=== PATIENT | female | born 1955 | race Caucasian/White ===

== ENCOUNTER 2017-03-19 13:16 | Emergency (ER) | payer BC, OTHER ==
--- NOTE | 2017-03-19 13:31 | EDM.PDOC ---
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 Generalized myalgia loss of appetite headache worsened by coughing. She has been on a Z-Radhames for 2 days with no improvement. Phenergan With Codeine cough syrup helps control the cough somewhat. She remains quite nauseated and coughing chills she has emesis at times and therefore has taken very little food or fluids the last several days. Feeling extremely weak has been using a combination of Tylenol Motrin. Coughing is aggravating mid back pain that shoots into the Botox bilaterally down the posterior thighs. This suggests she has a disc disease process. Onset: Sudden Onset Date: 03/16/17 Duration: Day(s): Location: Reports: Chest, Generalized (Severe paroxysmal cough headache with generalized myalgia), Other (Decreased appetite with very poor oral ) Quality: Reports: Ache (intake of food or fluids.) Severity: Moderate Improves with: Reports: None Worsens with: Reports: Other (Coughing.) Context: Reports: Sick Contact. Denies: Activity, Exercise, Lifting, Trauma, Other Associated Symptoms: Reports: Chest Pain, Cough, cough w sputum (From coughing) , Diaphoresis ( caseand production no blood), Fever/Chills, Headaches, Loss of Appetite, Malaise, Nausea/Vomiting, Shortness of Breath, Weakness (Usually posttussive vomiting. Her generalized weakness.). 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, NSAIDS (Motrin) Back Pain Score (Numeric/FACES): 6 - Related Data Allergies Allergy/AdvReac Type Severity Reaction Status Date / Time prochlorperazine edisylate Allergy Vomiting Verified 08/06/14 17:04 [From Compazine] prochlorperazine maleate Allergy Vomiting Verified 08/06/14 17:04 [From Compazine] shellfish derived Allergy Airway Verified 08/06/14 17:04 Tightness Home Meds: Home Meds Aspirin [Low Dose Aspirin EC] 81 mg PO DAILY 08/04/14 [History] Calcium Citrate/Vitamin D3 [Calcium Citrate + D] 1 tab PO DAILY 08/04/14 [ History] Fish Oil/Sturgeon-3 Fatty Acids [Fish Oil] 1,200 mg PO DAILY 08/04/14 [History] Flaxseed Oil [Flax Oil] 1,000 mg PO DAILY 08/04/14 [History] HCTZ/Triamterene [Dyazide 25-37.5 MG] 25 - 37.5 mg PO DAILY 08/04/14 [History] Multivitamin [Multi-Vitamin Daily] 1 tab PO DAILY 08/04/14 [History] Omeprazole [Prilosec] 20 mg PO DAILY 08/04/14 [History] Thyroid,Pork [Marina Thyroid] 90 mg PO DAILY 08/04/14 [History] Albuterol Sulfate [Albuterol Sulfate HFA] 2 puff INH Q4H 08/06/14 [History] Fluticasone Propionate [Flovent HFA 110 MCG] 1 puff INH BID 08/06/14 [History] Levofloxacin 500 mg PO DAILY 08/06/14 [History] Vitamin E 1,000 mg PO DAILY 08/06/14 [History] Benzonatate [Tessalon Perles] 100 mg PO TID PRN #15 cap 08/09/14 [Rx] Fluconazole [Diflucan] 150 mg PO Q72H #2 tablet 08/09/14 [Rx] guaiFENesin [Mucinex] 600 mg PO BID #20 tab.er 08/09/14 [Rx] Chlorpheniramine/HYDROcodone [Tussionex Pennkinetic] 5 ml PO Q12H #60 ml [Rx] Oseltamivir [Tamiflu] 75 mg PO BID #9 cap 03/19/17 [Rx] Past Medical History Other Respiratory History: pneumonia 08/03/2014 Other Genitourinary History: falopian Other OB/BYN History: R) ovary removed - Past Surgical History Other Female Surgeries/Procedures: falopian tube and ovary removal Other Oncologic Surgeries/Procedures: R) ovary removed Social & Family History - Tobacco Use Smoking Status *Q: Never Smoker Second Hand Smoke Exposure: No - Recreational Drug Use Recreational Drug Use: No - Living Situation & Occupation Living situation: Reports: Occupation: Employed ED ROS GENERAL - Review of Systems Review Of Systems: See Below Constitutional: Reports: Fever, Chills, Malaise, Weakness, Fatigue, Decreased Appetite, Weight Loss HEENT: Reports: Other. Denies: Eye Discharge Respiratory: Reports: Shortness of Breath (Eye pain with looking laterally.), Cough, Sputum. Denies: Wheezing, Pleuritic Chest Pain Cardiovascular: Reports: Chest Pain, Dyspnea on Exertion, Lightheadedness. Denies: Blood Pressure Problem (Coughing so much), Claudication, Edema, Orthopnea, Palpitations Endocrine: Reports: Fatigue GI/Abdominal: Reports: Abdominal Pain (From vomiting.), Nausea, Vomiting (Most emesis is been posttussive.) : Reports: No Symptoms Musculoskeletal: Reports: Back Pain (Severe back pain mid back rating down the back into both but talks and posterior thighs with coughing suggesting disc disease.) Skin: Reports: No Symptoms Neurological: Reports: Dizziness, Difficulty Walking Psychiatric: Reports: No Symptoms (Due to weakness in her legs.) Hematologic/Lymphatic: Reports: No Symptoms Immunologic: Reports: No Symptoms ED EXAM, GENERAL - Physical Exam Exam: See Below Exam Limited By: Other General Appearance: Alert, Moderate Distress (Appears quite ill. She is mildly warm to palpation.) Eye Exam: Bilateral Eye: Normal Inspection (No jaundice.) Ears: Normal TMs Throat/Mouth: Normal Inspection, Normal Lips, Normal Teeth, Normal Oropharynx, Other (Tonsils are absent.) Head: Atraumatic, Normocephalic Neck: Normal Inspection, Supple, Non-Tender, Full Range of Motion. No: Lymphadenopathy (L), Lymphadenopathy (R) Respiratory/Chest: No Accessory Muscle Use, Respiratory Distress (Moderate tachypnea at rest 30/m.), Other (Has upper respiratory mild stridor.) Cardiovascular: Normal Peripheral Pulses, Regular Rate, Rhythm, No Edema, No Gallop, No Murmur Peripheral Pulses: 2+: Posterior Tibial (L), Posterior Tibial (R), Dorsalis Pedis (L), Dorsalis Pedis (R) GI/Abdominal: Normal Bowel Sounds, Soft, Non-Tender, No Organomegaly Back Exam: Normal Inspection, Full Range of Motion, CVA Tenderness (L), CVA Tenderness (R) Extremities: Normal Inspection, Normal Range of Motion (Mildly tender throughout her back muscles.), Non-Tender, No Pedal Edema Neurological: Alert, Oriented, CN II-XII Intact, Normal Cognition, Normal Gait Psychiatric: Normal Affect, Normal Mood Skin Exam: Warm, Dry, Intact, Normal Color, No Rash Course - Vital Signs Last Recorded V/S: Last Vital Signs Temp 36.6 C 03/19/17 15:10 Pulse 84 03/19/17 13:27 Resp 19 03/19/17 14:44 BP 115/68 03/19/17 14:44 Pulse Ox 97 03/19/17 14:44 - Orders/Labs/Meds Orders: Active Orders 24 hr Category Date Time Status Dextrose 5%-0.9% NaCl [Dextrose 5%-Normal Saline] 1,000 Med 03/19/17 13:45 Active ml IV ASDIRECTED Ketorolac [Toradol] Med 03/19/17 13:45 Active 30 mg IVPUSH ONETIME Medication Orders Dextrose/Sodium Chloride (Dextrose 5%-Normal Saline) 1,000 mls @ 999 mls/hr IV ASDIRECTED BRET Last Admin: 03/19/17 14:16 Dose: 999 mls/hr Ketorolac Tromethamine (Toradol) 30 mg IVPUSH ONETIME BRET Last Admin: 03/19/17 14:17 Dose: 30 mg Labs: Laboratory Tests 03/19/17 03/19/17 Range/Units 14:01 14:01 WBC 4.75 (3.98-10.04) K/mm3 RBC 4.96 (3.98-5.22) M/mm3 Hgb 14.3 (11.2-15.7) gm/L Hct 43.8 (34.1-44.9) % MCV 88.3 (79.4-94.8) fl MCH 28.8 (25.6-32.2) pg MCHC 32.6 (32.2-35.5) g/dl RDW Std Deviation 45.3 (36.4-46.3) fL Plt Count 200 (182-369) K/mm3 MPV 10.4 (9.4-12.3) fl Neutrophils % (Manual) 52 (40-60) % Band Neutrophils % 2 (0-10) % Lymphocytes % (Manual) 41 H (20-40) % Atypical Lymphs % 0 % Monocytes % (Manual) 3 (2-10) % Eosinophils % (Manual) 2 (0.7-5.8) % Basophils % (Manual) 0 L (0.1-1.2) Platelet Estimate Adequate RBC Morph Comment Normal Sodium 141 (136-145) mEq/L Potassium 3.9 (3.5-5.1) mEq/L Chloride 103 (98-107) mEq/L Carbon Dioxide 30 (21-32) mEq/L Anion Gap 11.9 (5-15) BUN 17 (7-18) mg/dL Creatinine 0.9 (0.55-1.02) mg/dL Est Cr Clr Drug Dosing 55.25 mL/min Estimated GFR (MDRD) > 60 (>60) mL/min BUN/Creatinine Ratio 18.9 H (14-18) Glucose 100 (80-115) mg/dL Calcium 9.5 (8.5-10.1) mg/dL Total Bilirubin 0.4 (0.2-1.0) mg/dL AST 44 H (15-37) U/L ALT 70 H (14-59) U/L Alkaline Phosphatase 99 (46-116) U/L C-Reactive Protein 1.0 (<1.0) mg/dL Total Protein 7.4 (6.4-8.2) g/dl Albumin 3.5 (3.4-5.0) g/dl Globulin 3.9 gm/dL Albumin/Globulin Ratio 0.9 L (1-2) Meds: Medications Generic Name Dose Route Start Last Admin Trade Name Freq PRN Reason Stop Dose Admin Dextrose/Sodium Chloride 1,000 mls @ 999 mls/hr 03/19/17 13:45 03/19/17 14:16 Dextrose 5%-Normal Saline IV 999 mls/hr ASDIRECTED BRET Administration Ketorolac Tromethamine 30 mg 03/19/17 13:45 03/19/17 14:17 Toradol IVPUSH 30 mg ONETIME BRET Administration Discontinued Medications Generic Name Dose Route Start Last Admin Trade Name Freq PRN Reason Stop Dose Admin Acetaminophen 325 mg 03/19/17 15:07 03/19/17 15:10 Tylenol PO 03/19/17 15:08 325 mg NOW ONE Administration Ondansetron HCl 4 mg 03/19/17 14:36 03/19/17 14:43 Zofran IVPUSH 03/19/17 14:37 4 mg ONETIME ONE Administration Oseltamivir Phosphate 75 mg 03/19/17 14:40 03/19/17 14:47 Tamiflu PO 03/19/17 14:41 75 mg ONETIME ONE Administration - Radiology Interpretation Free Text/Narrative:: 61-year-old female attends the ED with a four-day history of fever chills and generalized myalgia headache and severe paroxysmal cough. She is on a Z-Radhames which has not seemed to help. She is also using Phenergan with codeine cough syrup which does help somewhat. She remains quite nauseated and has not really been able to keep much down in terms of fluids or solids. Clinically she is exhibiting signs and symptoms of influenza virus. 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 Cough is sometimes productive. Therefore chest x-ray will be done to rule out pneumonia. Influenza screen will be done. Routine labs will also be done. I will look up to IV for D5 normal saline at open. - Re-Assessments/Exams Free Text/Narrative Re-Assessment/Exam: 03/19/17 14:39 two-view chest x-ray is negative for pneumonia. There are some degenerative changes with anterior spurring of the mid thoracic vertebra. Cardiac silhouette is otherwise normal. Influenza screen is positive for type a virus. Patient remains quite nauseated I will therefore give her Zofran 4 mg IV. After this she will then be given initial dose of Tamiflu 75 mg. 03/19/17 15:25 White count is 4.75 with 52% neutrophils 2% bands and 41% lymphocytes. Hemoglobin is 14.3 with hematocrit of 43.8. Platelet count is 200, 000. Sodium is 141 with a potassium of 3.9. Chloride 103 with a bicarbonate of 30. Anion gap is 11.9 with a BUN of 17. Creatinine is 0.9. Glucose is 100. Bilirubin is normal at 0.4. AST is 44 mildly elevated ALT is mildly elevated at 70. Alk phosphatase normal at 99. C-reactive protein is 1.0. Patient be discharged home on Tamiflu 75 mg twice a day for the next 5 days. Tussionex cough syrup 5 mils every 12 hours. For cough relief. Continue with Motrin and Tylenol or draining fashion for fever relief. 03/19/17 16:12 I did write a prescription for Tamiflu for her -- Herbert , to take 75 mg once daily for 10 days to prevent him from getting influenza. Departure - Departure Time of Disposition: 15:26 Disposition: Home, Self-Care 01 Condition: Fair Clinical Impression: Influenza A - Discharge Information Prescriptions: Chlorpheniramine/HYDROcodone [Tussionex Pennkinetic] 5 ml PO Q12H #60 ml Oseltamivir [Tamiflu] 75 mg PO BID #9 cap Instructions: Influenza, Adult, [id number] Referrals: Edmundo Zendejas MD [Primary Care Provider] - Forms: ED Department Discharge Additional Instructions: Evaluation in the emergency him today in regards to four-day history of fever chills paroxysmal cough headache and loss of appetite compatible with influenza. Testing proved positive for influenza type a virus. Showed a normal white count at 4.75 with normal differential. He did not reveal any significant evidence of dehydration. You're treated with a liter of IV fluids in the ED as well as Zofran 4 mg IV to relieve nausea. Initial dose of Tamiflu 75 mg was given in the ED as well Treatment at home is second Tamiflu dose tonight at bedtime. Tamiflu was then to be taken twice daily for another 4 days. Usually you start to feel improved after the third tablet has been taken. Continue Tylenol alternating with Motrin as needed for fever headache and body ache relief. Cough syrup is to be Tussionex cough syrup 5 mils every 12 hours as needed for cough relief. You may find 5 mils too strong and I would suggest starting with 2.5 mils twice daily since you are very sensitive to medications. Usually takes about an hour to work. Plan at least a good hour before bedtime. I did fluids such as Gatorade Powerade and diet as tolerated. You're considered contagious to others for approximately 1 week from the time you developed symptoms. - My Orders Last 24 Hours: My Active Orders 03/19/17 13:45 Dextrose 5%-0.9% NaCl [Dextrose 5%-Normal Saline] 1,000 ml IV ASDIRECTED Ketorolac [Toradol] 30 mg IVPUSH ONETIME - Assessment/Plan Last 24 Hours: My Active Orders 03/19/17 13:45 Dextrose 5%-0.9% NaCl [Dextrose 5%-Normal Saline] 1,000 ml IV ASDIRECTED Ketorolac [Toradol] 30 mg IVPUSH ONETIME
[2017-03-19] MEDS ORDERED: Ketorolac 30 MG/ML SDV IVPUSH SCH (13:45)
[2017-03-19] MEDS ORDERED: Dextrose 5%-0.9% NaCl 1,000 ML IV SCH (13:45)
[2017-03-19] MEDS ORDERED: Ondansetron 4 MG/2 ML SDV IVPUSH ONE (14:36)
[2017-03-19] MEDS ORDERED: Oseltamivir 75 MG Cap PO ONE (14:40)
--- NOTE | 2017-03-19 14:44 | CR ---
Chest: Two views of the chest were obtained. Comparison: Prior chest x-ray of 08/06/14. Heart size at the upper limits of normal. Mild tortuosity of the thoracic aorta is seen. Lungs are clear. Bony structures show mild degenerative change scattered within the spine. Impression: 1. Incidental findings. Nothing acute is appreciated. Diagnostic code #2
[2017-03-19 14:50] VITALS: BP 115/68
[2017-03-19] MEDS ORDERED: Ibuprofen 600 MG Tab PO ONE (14:58)
[2017-03-19] MEDS ORDERED: Acetaminophen 325 MG Tab PO ONE ×2 (14:59→15:07)
== END 2017-03-19 15:43 | disposition home or self-care (01) ==
LOC: JD.ED 13:16
DX: J10.1 Influenza due to other identified influenza virus with other respiratory manifestations (principal); Z79.82 Long term (current) use of aspirin; Z79.2 Long term (current) use of antibiotics; Z79.899 Other long term (current) drug therapy; Z88.8 Allergy status to other drugs, medicaments and biological substances; Z91.013 Allergy to seafood
CPT/HCPCS: 36415; 71046; 80053; 85025; 86140; 87804; 96361; 96374; 96375; 99284; A9270; J1885; J2405; J7042

== ENCOUNTER 2018-02-05 09:54 | Emergency (ER) | payer BC, OTHER ==
[2018-02-05 10:04] VITALS: BP 135/91
--- NOTE | 2018-02-05 10:45 | CR ---
Chest: Two views of the chest were obtained. Comparison: Prior chest x-ray of 03/19/17. Heart size is normal. Tortuous thoracic aorta is seen. Lung markings are slightly increased centrally which appear to be chronic. No acute parenchymal change is seen. Bony structures show mild scattered degenerative change within the spine with slight scoliosis. Impression: 1. Incidental findings which are stable. Nothing acute is appreciated. Diagnostic code #2
--- NOTE | 2018-02-05 10:58 | EDM.PDOC ---
ED HPI GENERAL MEDICAL PROBLEM - General Chief Complaint: Respiratory Problem Stated Complaint: POSSIBLE PNEUMONIA Time Seen by Provider: 02/05/18 10:05 Source of Information: Reports: Patient, RN Notes Reviewed - History of Present Illness INITIAL COMMENTS - FREE TEXT/NARRATIVE: 62-year-old lady became ill several days ago with cough nasal sinus congestion sore throat. The nasal and sinus congestion continues with intermittent postnasal drainage. However her cough now has really move down into her chest. Is coughing up yellowish-green phlegm. She's had some chills and feels achy but no definite fever. She feels like she has no energy. She is concerned about possible pneumonia. He did have her influenza vaccine this fall a couple of months ago. Generalized Pain Score (Numeric/FACES): 5 - Related Data Allergies Allergy/AdvReac Type Severity Reaction Status Date / Time shellfish derived Allergy Airway Verified 02/05/18 10:04 Tightness prochlorperazine edisylate AdvReac Vomiting Verified 02/05/18 10:04 [From Compazine] prochlorperazine maleate AdvReac Vomiting Verified 02/05/18 10:04 [From Compazine] Home Meds: Home Meds Aspirin [Ecotrin] 81 mg PO DAILY 02/05/18 [History] Ca/D3/Mag#11/Zinc/Field Contractor/Filiberto/Bor [Caltrate Plus Tablet] 1 each PO DAILY 02/05/18 [ History] Cholecalciferol (Vitamin D3) [Vitamin D3] 5,000 unit PO DAILY 02/05/18 [History] Doxycycline [Vibramycin] 100 mg PO DAILY #14 tab 02/05/18 [Rx] Fish Oil/DHA/EPA [Fish Oil 1,200 MG] 1 each PO DAILY 02/05/18 [History] Flaxseed Oil 1,000 mg PO DAILY 02/05/18 [History] HCTZ/Triamterene [Maxzide 25-37.5 MG] 1 tab PO DAILY 02/05/18 [History] Magnesium 250 mg PO DAILY 02/05/18 [History] Multivitamin [Daily Multiple Vitamin] 1 each PO DAILY 02/05/18 [History] Pantoprazole Sodium [Protonix] 40 mg PO DAILY 02/05/18 [History] Rosuvastatin [Crestor] 5 mg PO DAILY 02/05/18 [History] Thyroid. 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 Musculoskeletal History: Reports: Arthritis Endocrine/Metabolic History: Reports: Hypothyroidism - Past Surgical History HEENT Surgical History: Reports: Other (See Below) Other HEENT Surgeries/Procedures: mother h ad macular degneration and ptis on ocuvite GI Surgical History: Reports: Appendectomy, Cholecystectomy, Colonoscopy Other Female Surgeries/Procedures: falopian tube and ovary removal Other Oncologic Surgeries/Procedures: R) ovary removed Social & Family History - Tobacco Use Smoking Status *Q: Never Smoker - Caffeine Use Caffeine Use: Reports: Coffee - Recreational Drug Use Recreational Drug Use: No - Living Situation & Occupation Living situation: Reports: Occupation: Employed ED ROS GENERAL - Review of Systems Review Of Systems: See Below Constitutional: Reports: Chills, Malaise, Fatigue. Denies: Fever HEENT: Reports: Rhinitis, Sinus Problem, Throat Pain Respiratory: Reports: Cough, Sputum. Denies: Shortness of Breath, Wheezing Cardiovascular: Reports: Chest Pain (With coughing) GI/Abdominal: Denies: Vomiting Musculoskeletal: Reports: Other (Generalized achiness) Neurological: Reports: No Symptoms ED EXAM, GENERAL - Physical Exam Exam: See Below General Appearance: Alert, Moderate Distress Nose: Other Throat/Mouth: Normal Inspection (There is nasal congestion), Normal Oropharynx Head: No: Facial Swelling Neck: Supple Respiratory/Chest: Respiratory Distress (Moderate tachypnea). No: Rales, Rhonchi, Wheezing Cardiovascular: Regular Rate, Rhythm Extremities: Normal Inspection Neurological: Alert, Oriented Skin Exam: Warm, Dry, Normal Color Course - Vital Signs Last Recorded V/S: Last Vital Signs Temp 97.9 F 02/05/18 10:01 Pulse 88 02/05/18 10:01 Resp 26 H 02/05/18 10:01 BP 135/91 H 02/05/18 10:01 Pulse Ox 98 02/05/18 10:01 - Orders/Labs/Meds Labs: Laboratory Tests 02/05/18 02/05/18 Range/Units 10:39 10:39 WBC 5.74 (3.98-10.04) K/mm3 RBC 4.75 (3.98-5.22) M/mm3 Hgb 14.3 (11.2-15.7) gm/L Hct 42.6 (34.1-44.9) % MCV 89.7 (79.4-94.8) fl MCH 30.1 (25.6-32.2) pg MCHC 33.6 (32.2-35.5) g/dl RDW Std Deviation 45.1 (36.4-46.3) fL Plt Count 209 (182-369) K/mm3 MPV 10.3 (9.4-12.3) fl Neut % (Auto) 52.0 (34.0-71.1) % Lymph % (Auto) 28.2 (19.3-51.7) % Roberts % (Auto) 12.5 (4.7-12.5) % Eos % (Auto) 6.4 H (0.7-5.8) Baso % (Auto) 0.9 (0.1-1.2) % Neut # (Auto) 2.98 (1.56-6.13) K/mm3 Lymph # (Auto) 1.62 (1.18-3.74) K/mm3 Roberts # (Auto) 0.72 H (0.24-0.36) K/mm3 Eos # (Auto) 0.37 H (0.04-0.36) K/mm3 Baso # (Auto) 0.05 (0.01-0.08) K/mm3 Mycoplasma pneumon IgM Negative (NEGATIVE) - Re-Assessments/Exams Free Text/Narrative Re-Assessment/Exam: 02/05/18 11:19 Patient feeling much better after IV fluid and meds, discharge instructions as documented. Departure - Departure Time of Disposition: 11:13 Disposition: Home, Self-Care 01 Condition: Fair Clinical Impression: Bronchitis Sinusitis Qualifiers: Sinusitis location: maxillary Chronicity: acute Recurrence: not specified as recurrent Qualified Code(s): J01.00 - Acute maxillary sinusitis, unspecified - Discharge Information Prescriptions: Doxycycline [Vibramycin] 100 mg PO DAILY #14 tab Referrals: Edmundo Zendejas MD [Primary Care Provider] - Forms: ED Department Discharge Additional Instructions: Continue amoxicillin as previously prescribed, start doxycycline 100 mg twice daily and take that in addition for 1 week, vaporizer or steam as needed, rest, drink plenty of fluids to maintain hydration, decongestant such as Sudafed as needed. Follow-up clinic or return to ED as needed if symptoms not resolving over the next 3-5 days as expected, the cough may take much longer to completely go away.
== END 2018-02-05 11:25 | disposition home or self-care (01) ==
LOC: JD.ED 09:54
DX: J40 Bronchitis, not specified as acute or chronic (principal); J01.00 Acute maxillary sinusitis, unspecified; J45.909 Unspecified asthma, uncomplicated; E03.9 Hypothyroidism, unspecified; Z88.8 Allergy status to other drugs, medicaments and biological substances; Z79.82 Long term (current) use of aspirin; Z79.899 Other long term (current) drug therapy
CPT/HCPCS: 36415; 71046; 71046-26; 85025; 86738; 87804; 99284

== ENCOUNTER 2018-05-09 09:47 | Emergency (ER) | payer BC, OTHER ==
[2018-05-09 10:06] VITALS: BP 130/80
--- NOTE | 2018-05-09 10:17 | EDM.PDOC ---
ED HPI GENERAL MEDICAL PROBLEM - General Chief Complaint: Abdominal Pain Stated Complaint: ABDOMINAL PAIN Time Seen by Provider: 05/09/18 10:00 Source of Information: Reports: Patient History Limitations: Reports: No Limitations - History of Present Illness INITIAL COMMENTS - FREE TEXT/NARRATIVE: 62-year-old female presents to the ED with diffuse upper abdominal pain. Been going on for about 10 days where she can tolerate clear fluids but can't tolerate any solids. Cells will exacerbate the pain tremendously. She also finds it painful to stand fully erect. Patient had a very large ventral hernia that we had to reduce about 6 months ago. No history of umbilical hernia. She feels the pain mainly supraumbilical area. States her bowel function tends to be loose pasty stool. Not really diarrhea. Associated intermittent nausea and vomiting worsened by trying to eat solid food. Penis abdominal surgery includes a gangrenous gallbladder. Stones at age 14 and a coincidental appendectomy at that time. Subsequent to that she's had a fallopian tube removed because of cancer. She believes both ovaries are still in as is her uterus. Onset: Gradual Onset Date: 04/29/18 (Pain started about 10 days ago and is been off and on but much worse the last 3 days.) Duration: Day(s):, Getting Worse, Intermittent, Waxing/Waning Location: Reports: Abdomen (Supra umbilical pain.) Quality: Reports: Ache, Other Severity: Moderate (Pain with standing fully erect) Improves with: Reports: Rest Worsens with: Reports: Eating Context: Denies: Activity (Eating solids. She can tolerate clear fluids and protein shakes.), Exercise, Lifting, Sick Contact, Trauma, Other Associated Symptoms: Reports: Loss of Appetite. 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: Other (see below) (None.) Middle Abdominal Pain Score (Numeric/FACES): 8 - Related Data Allergies Allergy/AdvReac Type Severity Reaction Status Date / Time shellfish derived Allergy Airway Verified 02/05/18 10:04 Tightness prochlorperazine edisylate AdvReac Vomiting Verified 02/05/18 10:04 [From Compazine] prochlorperazine maleate AdvReac Vomiting Verified 02/05/18 10:04 [From Compazine] Home Meds: Home Meds Aspirin [Ecotrin] 81 mg PO DAILY 02/05/18 [History] Ca/D3/Mag#11/Zinc/Emu Farm Worker/Filiberto/Bor [Caltrate Plus Tablet] 1 each PO DAILY 02/05/18 [ History] Cholecalciferol (Vitamin D3) [Vitamin D3] 5,000 unit PO DAILY 02/05/18 [History] Doxycycline [Vibramycin] 100 mg PO DAILY #14 tab 02/05/18 [Rx] Fish Oil/DHA/EPA [Fish Oil 1,200 MG] 1 each PO DAILY 02/05/18 [History] Flaxseed Oil 1,000 mg PO DAILY 02/05/18 [History] HCTZ/Triamterene [Maxzide 25-37.5 MG] 1 tab PO DAILY 02/05/18 [History] Magnesium 250 mg PO DAILY 02/05/18 [History] Multivitamin [Daily Multiple Vitamin] 1 each PO DAILY 02/05/18 [History] Pantoprazole Sodium [Protonix] 40 mg PO DAILY 02/05/18 [History] Rosuvastatin [Crestor] 5 mg PO DAILY 02/05/18 [History] Thyroid. 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 Coincidental appendectomy done at that time as well.), Colonoscopy Female Surgical History: Reports: Other (See Below) Other Female Surgeries/Procedures: falopian tube and ovary removal Other Oncologic Surgeries/Procedures: R) ovary removed Social & Family History - Tobacco Use Smoking Status *Q: Unknown Ever Smoked - Caffeine Use Caffeine Use: Reports: Coffee - Living Situation & Occupation Living situation: Reports: Occupation: Employed ED ROS GENERAL - Review of Systems Review Of Systems: See Below Constitutional: Reports: Decreased Appetite. Denies: Fever, Chills, Malaise, Weakness, Fatigue, Weight Loss HEENT: Reports: Glasses Respiratory: Reports: No Symptoms Cardiovascular: Reports: No Symptoms Endocrine: Reports: No Symptoms GI/Abdominal: Reports: Abdominal Pain (See history of present illness), Diarrhea (Stools are loose and pasty. No blood) : Reports: No Symptoms Musculoskeletal: Reports: Back Pain, Joint Pain, Other Skin: Reports: No Symptoms Neurological: Reports: No Symptoms Psychiatric: Reports: No Symptoms ED EXAM, GI/ABD - Physical Exam Exam: See Below Exam Limited By: No Limitations General Appearance: Alert, WD/WN, No Apparent Distress, Other (Vital signs are all normal.) Eyes: Bilateral: Normal Appearance Respiratory/Chest: No Respiratory Distress, Lungs Clear, Normal Breath Sounds, No Accessory Muscle Use Cardiovascular: Normal Peripheral Pulses, Regular Rate, Rhythm, No Edema, No Gallop, No Murmur, No Rub GI/Abdominal Exam: Soft (Bowel sounds are just slightly more active than normal. ), No Organomegaly, No Abnormal Bruit, No Mass, Pelvis Stable, Tender ((In an area 3-4 cm above the umbilicus and down to the superior umbilicus), Abnormal Bowel Sounds Back Exam: Normal Inspection, Full Range of Motion. No: CVA Tenderness (L), CVA Tenderness (R) Extremities: Normal Inspection, Normal Range of Motion, Non-Tender, No Pedal Edema Neurological: Alert, Oriented, CN II-XII Intact, Normal Cognition Psychiatric: Normal Affect, Normal Mood Skin Exam: Warm, Dry, Intact, Normal Color, No Rash Course - Vital Signs Last Recorded V/S: Last Vital Signs Temp 36.7 C 05/09/18 10:03 Pulse 70 05/09/18 10:03 Resp 18 05/09/18 10:03 BP 130/80 05/09/18 10:03 Pulse Ox 97 05/09/18 10:03 - Orders/Labs/Meds Orders: Active Orders 24 hr Category Date Time Status Peripheral IV Care [RC] . DIRECTED Care 05/09/18 10:20 Active Peripheral IV Insertion Adult [OM.PC] Stat Oth 05/09/18 10:20 Ordered Labs: Laboratory Tests 05/09/18 05/09/18 05/09/18 Range/Units 10:25 10:25 10:25 WBC 5.41 (3.98-10.04) K/mm3 RBC 5.12 (3.98-5.22) M/mm3 Hgb 14.8 (11.2-15.7) gm/L Hct 44.4 (34.1-44.9) % MCV 86.7 (79.4-94.8) fl MCH 28.9 (25.6-32.2) pg MCHC 33.3 (32.2-35.5) g/dl RDW Std Deviation 44.3 (36.4-46.3) fL Plt Count 195 (182-369) K/mm3 MPV 10.4 (9.4-12.3) fl Neutrophils % (Manual) 43 (40-60) % Band Neutrophils % 1 (0-10) % Lymphocytes % (Manual) 33 (20-40) % Atypical Lymphs % 0 % Monocytes % (Manual) 15 H (2-10) % Eosinophils % (Manual) 8 H (0.7-5.8) % Basophils % (Manual) 0 L (0.1-1.2) Platelet Estimate Adequate RBC Morph Comment Normal Sodium 143 (136-145) mEq/L Potassium 3.5 (3.5-5.1) mEq/L Chloride 106 (98-107) mEq/L Carbon Dioxide 28 (21-32) mEq/L Anion Gap 12.5 (5-15) BUN 20 H (7-18) mg/dL Creatinine 0.9 (0.55-1.02) mg/dL Est Cr Clr Drug Dosing TNP Estimated GFR (MDRD) > 60 (>60) mL/min BUN/Creatinine Ratio 22.2 H (14-18) Glucose 109 (80-115) mg/dL Lactic Acid 1.1 (0.4-2.0) mmol/L Calcium 9.5 (8.5-10.1) mg/dL Total Bilirubin 0.5 (0.2-1.0) mg/dL AST 24 (15-37) U/L ALT 34 (14-59) U/L Alkaline Phosphatase 85 (46-116) U/L C-Reactive Protein 0.6 (<1.0) mg/dL Total Protein 7.0 (6.4-8.2) g/dl Albumin 3.5 (3.4-5.0) g/dl Globulin 3.5 gm/dL Albumin/Globulin Ratio 1.0 (1-2) Meds: Medications Discontinued Medications Generic Name Dose Route Start Last Admin Trade Name Kikeq PRN Reason Stop Dose Admin Magnesium Citrate 240 ml 05/09/18 11:07 05/09/18 11:18 Citrate Of Magnesia PO 05/09/18 11:08 240 ml ONETIME ONE Administration Sodium Chloride 10 ml 05/09/18 10:20 05/09/18 10:25 Saline Flush FLUSH 10 ml ASDIRECTED PRN Administration Keep Vein Open - Radiology Interpretation Free Text/Narrative:: 62-year-old female presents to the ED with diffuse upper abdominal discomfort for the last 10 days. She is to be getting worse over the last 3 days. Got a point where she can tolerate clear fluids but cannot tolerate any food as it makes the pain immediately worse. Stools have been loose and pasty but not really diarrhea. There is no blood per rectum. Examination reveals tenderness in an area 3-4 cm from the superior umbilicus and upwards. Patient did have a large ventral hernia that required reduction in the ED about 6 months ago. He cannot stand fully erect without aggravating the pain. This suggests that she likely has a piece of omentum stuck in a ventral hernia. Plan routine labs. She is adequately hydrated therefore fluids will not be added at this time. CT of the abdomen will be done without contrast to look to see if there is anything incarcerated in the abdominal wall. - Re-Assessments/Exams Free Text/Narrative Re-Assessment/Exam: 05/09/18 11:00: CT of the abdomen and pelvis performed without any contrast looking primarily for potential ventral hernia or umbilical hernia incarceration. However none of this was found. Slight fatty eventration is noted within both sides of the diaphragm medially. These findings are stable from previous exam. Liver appears to be normal spleen appears to be normal pancreas appears to be normal. Incidental calcified granulomas are seen within the spleen. Adrenal glands show no nodule. Kidneys show no abnormal calcifications or hydronephrosis. Diverticula are seen within the sigmoid colon with no signs of diverticulitis at this time. There is a small fat-containing umbilical hernia with no signs of obstruction. The major problem appears to be that of constipation with large amount of stool throughout the entire colon particularly the right hemicolon and transverse colon. Patient so advised. Plan will be magnesium citrate 8 ounces by mouth with 6 ounces of juice of choice to provide bowel cleanse. Suggest adpting and wait and see how her abdominal pain is after bowel cleanse. Follow-up as needed Departure - Departure Time of Disposition: 11:10 Disposition: Home, Self-Care 01 Condition: Fair Clinical Impression: Constipation by delayed colonic transit Abdominal pain Qualifiers: Abdominal location: epigastric Qualified Code(s): R10.13 - Epigastric pain - Discharge Information *PRESCRIPTION DRUG MONITORING PROGRAM REVIEWED*: Not Applicable *COPY OF PRESCRIPTION DRUG MONITORING REPORT IN PATIENT LARA: Not Applicable Instructions: Constipation, Adult, [id number], Abdominal Pain, Adult, Easy-to -Read Referrals: Edmundo Zendejas MD [Primary Care Provider] - Forms: ED Department Discharge Additional Instructions: Evaluation in the emergency room today in regards to persistent upper abdominal discomfort for the last 10 days but much worse the last 3 days in hip and inability to eat solid foods. Clear fluids are going through with no problem. She didn't loose stools pasty and semi-formed but not diarrhea. No associated fever or chills. History of ventral hernia requiring reduction. 2 previous cholecystectomy and appendectomy and right fallopian tube excision. Tenderness on examination in the supraumbilical area about 4 cm from the umbilicus and in the midline. He of the head was performed without any contrast to identify if anything stuck in a ventral hernia or umbilical hernia. No tissue omentum was identified within any hernia. There is a small fat-containing umbilical hernia. The CT did demonstrate a fair amount of stool throughout the entire colon compatible with constipation. Particularly the transverse colon that runs across the upper abdomen was quite full. I suspect that once bowel cleanses performed your abdominal discomfort will improve. No other abnormalities were identified on CT exam. It is therefore to be Citroma mixed or magnesium citrate 8 ounces by mouth taken to 6 ounces of juice of choice once to provide bowel cleanse. Follow-up is required if you continue to have abdominal discomfort in spite of bowel cleanse. If constipation is a major problem for you then MiraLAX 17 g once daily would be advised to keep the bowels much more regular. 17 g or 1 scoop once daily would be the appropriate dose. - My Orders Last 24 Hours: My Active Orders 05/09/18 10:20 Peripheral IV Care [RC] . DIRECTED Peripheral IV Insertion Adult [OM.PC] Stat - Assessment/Plan Last 24 Hours: My Active Orders 05/09/18 10:20 Peripheral IV Care [RC] . DIRECTED Peripheral IV Insertion Adult [OM.PC] Stat
[2018-05-09] MEDS ORDERED: Sodium Chloride 0.9% 10 ML Syringe FLUSH PRN (10:20)
[2018-05-09] MEDS ORDERED: Magnesium Citrate Solution 296 ML Bottle PO ONE (11:07)
--- NOTE | 2018-05-09 11:25 | CT ---
CT abdomen and pelvis Technique: Multiple axial sections were obtained from above the dome of the diaphragm inferiorly through the pubic symphysis. Intravenous and oral contrast not utilized. Lack of contrast does limit details. Comparison: Prior CT abdomen and pelvis exam of 07/22/12. Findings: Slight fatty eventration is noted within both sides of the diaphragm medially. These findings are stable from previous exam. No acute parenchymal change seen within either lung base. Noncontrast appearance of the liver appears within normal limits. Spleen appears within normal limits in size. Several incidental calcified granulomas are seen within the spleen. Adrenal glands show no nodule. Pancreas is within normal limits. Kidneys show no abnormal calcifications or hydronephrosis. No ureteral stone is seen. Aorta shows no aneurysm. No retroperitoneal adenopathy or mesenteric abnormalities are seen. No pelvic mass or adenopathy is seen. No free fluid is seen. Pelvis shows no adenopathy or mass. Diverticuli are seen within the sigmoid colon with no findings of diverticulitis seen at this time. Minimal fat-containing umbilical hernia is noted. No other abdominal wall hernia is seen. There is atrophy noted of the rectus muscles asymmetrically worse on the right side. No free fluid is seen. No bowel dilatation is identified. Bone window settings were reviewed which shows scoliosis within the spine with scattered degenerative change. Impression: 1. Very small fat-containing umbilical hernia. 2. Other incidental findings as noted above. Nothing acute is appreciated. Diagnostic code #2
== END 2018-05-09 11:18 | disposition home or self-care (01) ==
LOC: JD.ED 09:47
DX: K59.01 Slow transit constipation (principal); J45.909 Unspecified asthma, uncomplicated; K21.9 Gastro-esophageal reflux disease without esophagitis; E03.9 Hypothyroidism, unspecified; Z79.82 Long term (current) use of aspirin; Z79.899 Other long term (current) drug therapy; Z91.013 Allergy to seafood; Z88.8 Allergy status to other drugs, medicaments and biological substances
CPT/HCPCS: 36415; 74176; 80053; 83605; 85007; 85027; 86140; 99284; A9270; 99283

== ENCOUNTER 2019-06-19 17:57 | Emergency (ER) | payer BC, OTHER ==
[2019-06-19 18:10] VITALS: BP 131/91; PULSE 133
[2019-06-19] MEDS ORDERED: Sodium Chloride 0.9% 10 ML Syringe FLUSH PRN (18:25)
[2019-06-19] MEDS ORDERED: Diltiazem 50 MG/10 ML SDV IVPUSH ONE (18:28)
--- NOTE | 2019-06-19 18:29 | EDM.PDOC ---
ED HPI GENERAL MEDICAL PROBLEM - General Chief Complaint: Cardiovascular Problem Stated Complaint: AFIB ATTACK Time Seen by Provider: 06/19/19 18:13 Source of Information: Reports: Patient, RN Notes Reviewed - History of Present Illness INITIAL COMMENTS - FREE TEXT/NARRATIVE: 63 yr old lady with onset of palpitations, tightness in throat about 2 hrs ago. Checked a rythm strip and she was in A fib, rate in the 160 range. She took lopressor 25 mg times 2 which she has taken in the past. She had a prior episode of a fib about 10 months ago with 3 day hospitalization before she converted. No current chest pain, dyspnea, abd pain, nausea, vomiting or unusual dizziness. - Related Data Allergies Allergy/AdvReac Type Severity Reaction Status Date / Time shellfish derived Allergy Severe Airway Verified 06/19/19 18:10 Tightness prochlorperazine edisylate AdvReac Severe Vomiting Verified 06/19/19 18:10 [From Compazine] prochlorperazine maleate AdvReac Severe Vomiting Verified 06/19/19 18:10 [From Compazine] Home Meds: Home Meds Edmund/D3/Mag11/Zinc/Shirt Maker/Filiberto/Bor [Caltrate Plus Tablet] 1 each PO DAILY 02/05/18 [ History] Cholecalciferol (Vitamin D3) [Vitamin D3] 5,000 unit PO DAILY 02/05/18 [History] Fish Oil/DHA/EPA [Fish Oil 1,200 MG] 1 each PO DAILY 02/05/18 [History] Flaxseed Oil 1,000 mg PO DAILY 02/05/18 [History] HCTZ/Triamterene [Maxzide 25-37.5 MG] 1 tab PO DAILY 02/05/18 [History] Magnesium 250 mg PO DAILY 02/05/18 [History] Multivitamin [Daily Multiple Vitamin] 1 each PO DAILY 02/05/18 [History] Pantoprazole Sodium [Protonix] 40 mg PO DAILY 02/05/18 [History] Rosuvastatin [Crestor] 5 mg PO MOWEFR 02/05/18 [History] Vitamin E 400 unit PO DAILY 02/05/18 [History] Metoprolol Tartrate [Lopressor] 25 mg PO DAILY PRN 06/19/19 [History] Rivaroxaban [Xarelto] 20 mg PO DAILY 06/19/19 [History] Thyroid,Pork [[place] Thyroid] 90 mg PO DAILY 06/19/19 [History] Past Medical History Cardiovascular History: Reports: Other (See Below) Other Cardiovascular History: fluid retention Respiratory History: Reports: Asthma Other Respiratory History: pneumonia 08/03/2014 Gastrointestinal History: Reports: GERD Other Genitourinary History: falopian 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 Musculoskeletal History: Reports: Arthritis Endocrine/Metabolic History: Reports: Hypothyroidism - Past Surgical History HEENT Surgical History: Reports: Other (See Below) Other HEENT Surgeries/Procedures: mother h ad macular degneration and ptis on ocuvite GI Surgical History: Reports: Appendectomy, Cholecystectomy, Colonoscopy Female Surgical History: Reports: Other (See Below) Other Female Surgeries/Procedures: falopian tube and ovary removal Other Oncologic Surgeries/Procedures: R) ovary removed Social & Family History - Caffeine Use Caffeine Use: Reports: Coffee - Living Situation & Occupation Living situation: Reports: Occupation: Employed ED ROS GENERAL - Review of Systems Review Of Systems: See Below Constitutional: Denies: Fever, Chills, Diaphoresis HEENT: Reports: Other (throat felt mildly tight, now feels better) Respiratory: Denies: Shortness of Breath Cardiovascular: Reports: Palpitations (gone). Denies: Chest Pain GI/Abdominal: Reports: No Symptoms. Denies: Nausea, Vomiting Musculoskeletal: Denies: Neck Pain, Arm Pain, Back Pain Skin: Reports: No Symptoms Neurological: Reports: No Symptoms ED EXAM, GENERAL - Physical Exam Exam: See Below General Appearance: Alert, No Apparent Distress Eye Exam: Bilateral Eye: PERRL Throat/Mouth: Normal Inspection Head: Atraumatic Neck: Supple Respiratory/Chest: No Respiratory Distress, Lungs Clear, Normal Breath Sounds Cardiovascular: Tachycardia Extremities: Normal Inspection. No: Pedal Edema, Leg Pain Neurological: Alert, Oriented, No Motor/Sensory Deficits Skin Exam: Warm, Dry, Normal Color EKG INTERPRETATION EKG Date: 06/19/19 Rhythm: A-Flutter [place]: Normal P-Wave: Variable QRS: Normal ST-T: Normal Course - Vital Signs Last Recorded V/S: Last Vital Signs Temp 97.9 F 06/19/19 18:06 Pulse 133 H 06/19/19 18:06 Resp 16 06/19/19 18:06 BP 131/91 H 06/19/19 18:06 Pulse Ox 100 06/19/19 18:06 - Orders/Labs/Meds Orders: Active Orders 24 hr Category Date Time Status EKG 12 Lead [EKG Documentation Completion] [RC] STAT Care 06/19/19 18:25 Active EKG 12 Lead [EKG Documentation Completion] [RC] STAT Care 06/19/19 18:26 Inactive Peripheral IV Care [RC] . DIRECTED Care 06/19/19 18:27 Active Chest 1V Frontal [CR] Stat Exams 06/19/19 18:24 Taken Peripheral IV Insertion Adult [OM.PC] Stat Oth 06/19/19 18:25 Ordered Labs: Laboratory Tests 06/19/19 06/19/19 06/19/19 Range/Units 18:19 18:19 18:19 WBC 6.34 (3.98-10.04) K/mm3 RBC 5.04 (3.98-5.22) M/mm3 Hgb 15.0 (11.2-15.7) gm/dl Hct 45.1 H (34.1-44.9) % MCV 89.5 (79.4-94.8) fl MCH 29.8 (25.6-32.2) pg MCHC 33.3 (32.2-35.5) g/dl RDW Std Deviation 45.3 (36.4-46.3) fL Plt Count 239 (182-369) K/mm3 MPV 10.5 (9.4-12.3) fl Neut % (Auto) 46.4 (34.0-71.1) % Lymph % (Auto) 35.8 (19.3-51.7) % Caroline % (Auto) 11.8 (4.7-12.5) % Eos % (Auto) 4.9 (0.7-5.8) Baso % (Auto) 0.9 (0.1-1.2) % Neut # (Auto) 2.94 (1.56-6.13) K/mm3 Lymph # (Auto) 2.27 (1.18-3.74) K/mm3 Caroline # (Auto) 0.75 H (0.24-0.36) K/mm3 Eos # (Auto) 0.31 (0.04-0.36) K/mm3 Baso # (Auto) 0.06 (0.01-0.08) K/mm3 Sodium 144 (136-145) mEq/L Potassium 3.7 (3.5-5.1) mEq/L Chloride 106 (98-107) mEq/L Carbon Dioxide 29 (21-32) mEq/L Anion Gap 12.7 (5-15) BUN 15 (7-18) mg/dL Creatinine 0.9 (0.55-1.02) mg/dL Est Cr Clr Drug Dosing 52.68 mL/min Estimated GFR (MDRD) > 60 (>60) mL/min BUN/Creatinine Ratio 16.7 (14-18) Glucose 87 (80-115) mg/dL Calcium 10.0 (8.5-10.1) mg/dL Total Bilirubin 0.5 (0.2-1.0) mg/dL AST 28 (15-37) U/L ALT 60 H (14-59) U/L Alkaline Phosphatase 105 (46-116) U/L Total Protein 7.8 (6.4-8.2) g/dl Albumin 4.0 (3.4-5.0) g/dl Globulin 3.8 gm/dL Albumin/Globulin Ratio 1.1 (1-2) TSH 3rd Generation 1.337 (0.358-3.74) uIU/mL Meds: Medications Discontinued Medications Generic Name Dose Route Start Last Admin Trade Name Freq PRN Reason Stop Dose Admin Diltiazem HCl 20 mg 06/19/19 18:28 06/19/19 18:36 Cardizem IVPUSH 06/19/19 18:29 20 mg ONETIME ONE Administration Sodium Chloride 1,000 mls @ 999 mls/hr 06/19/19 18:45 06/19/19 18:56 Normal Saline IV 999 mls/hr ONETIME BRET Administration Sodium Chloride 10 ml 06/19/19 18:25 06/19/19 18:29 Saline Flush FLUSH 10 ml ASDIRECTED PRN Administration Keep Vein Open - Re-Assessments/Exams Free Text/Narrative Re-Assessment/Exam: 06/19/19 20:36 EKG, cardiac moniter showed what looked like a flutter with 2:1 conduction, vent rate 136 to 138. She converted very shortly after 10 mg diltiazm IV. Continued in NSR while awaiting lab work, rate 60's to 70, labs came back good , discharge instr. as documented. Departure - Departure Time of Disposition: 19:19 Disposition: Home, Self-Care 01 Condition: Fair Clinical Impression: Atrial fibrillation with RVR Instructions: Atrial Fibrillation Referrals: Edmundo Zendejas MD [Primary Care Provider] - Forms: ED Department Discharge Additional Instructions: Your labs including potassium, TSH were normal. Continue the lopressor 25 mg daily as tolerated for now, see Dr Zendejas as planned. Return to ED as needed. Sepsis Event Note - Evaluation Sepsis Screening Result: No Definite Risk - Focused Exam Vital Signs: Vital Signs Temp Pulse Resp BP Pulse Ox 06/19/19 18:06 97.9 F 133 H 16 131/91 H 100 Date Exam was Performed: 06/19/19 Time Exam was Performed: 20:33 - My Orders Last 24 Hours: My Active Orders 06/19/19 18:24 Chest 1V Frontal [CR] Stat 06/19/19 18:25 EKG 12 Lead [EKG Documentation Completion] [RC] STAT Peripheral IV Insertion Adult [OM.PC] Stat 06/19/19 18:26 EKG 12 Lead [EKG Documentation Completion] [RC] STAT 06/19/19 18:27 Peripheral IV Care [RC] . DIRECTED - Assessment/Plan Last 24 Hours: My Active Orders 06/19/19 18:24 Chest 1V Frontal [CR] Stat 06/19/19 18:25 EKG 12 Lead [EKG Documentation Completion] [RC] STAT Peripheral IV Insertion Adult [OM.PC] Stat 06/19/19 18:26 EKG 12 Lead [EKG Documentation Completion] [RC] STAT 06/19/19 18:27 Peripheral IV Care [RC] . DIRECTED
[2019-06-19] MEDS ORDERED: Sodium Chloride 0.9% 1,000 ML IV SCH (18:45)
--- NOTE | 2019-06-20 06:04 | CR ---
Chest: Portable view of the chest was obtained. Comparison: Prior chest x-ray of 02/05/18. Heart size is within normal limits for portable technique. Tortuous thoracic aorta is seen. Lung markings are slightly increased but stable from prior chest x-ray. No acute parenchymal change is seen. Scoliosis is noted within the spine with scattered degenerative change. Impression: 1. Stable findings as noted above. 2. Nothing acute is appreciated on portable chest x-ray. Diagnostic code #2 This report was dictated in MDT
== END 2019-06-19 19:31 | disposition home or self-care (01) ==
LOC: JD.ED 17:57
DX: I48.91 Unspecified atrial fibrillation (principal); K21.9 Gastro-esophageal reflux disease without esophagitis; E03.9 Hypothyroidism, unspecified; Z91.013 Allergy to seafood; Z88.8 Allergy status to other drugs, medicaments and biological substances; Z79.899 Other long term (current) drug therapy; Z79.01 Long term (current) use of anticoagulants
CPT/HCPCS: 36415; 71045; 80053; 84443; 85025; 93005; 96374; 99285; J3490; J7030; 93010; 99284

== ENCOUNTER 2020-05-10 00:11 | Observation (INO) | payer BC, MEDICARE, OTHER ==
[2020-05-10] MEDS ORDERED: Metoprolol Tartrate 5 MG/5 ML SDV IVPUSH ONE ×3 (00:26→01:06)
[2020-05-10 01:12] VITALS: PULSE 121
[2020-05-10] MEDS ORDERED: Diltiazem 50 MG/10 ML SDV IVPUSH ONE (01:28)
--- NOTE | 2020-05-10 02:13 | EDM.PDOC ---
ED HPI GENERAL MEDICAL PROBLEM - General Chief Complaint: Cardiovascular Problem Stated Complaint: HEART FLUTTER AND BACK TIGHTNESS Time Seen by Provider: 05/10/20 00:14 Source of Information: Reports: Patient History Limitations: Reports: No Limitations - History of Present Illness INITIAL COMMENTS - FREE TEXT/NARRATIVE: The patient is come in with palpitations. She is noted fluttering in her chest. She has a history of atrial fibrillation for which she is taking metoprolol on a daily basis. For some reason she stopped taking her metoprolol a week ago but took her dose just prior to arrival in the ER. There is been no chest pain or shortness of breath. She has been asymptomatic. She is apparently mildly hypertensive. She is not a diabetic. She is a non-smoker. There is hypothyroidism for which she is taking Donner Thyroid. - Related Data Allergies Allergy/AdvReac Type Severity Reaction Status Date / Time shellfish derived Allergy Severe Airway Verified 05/10/20 00:21 Tightness prochlorperazine edisylate AdvReac Severe Vomiting Verified 05/10/20 00:21 [From Compazine] prochlorperazine maleate AdvReac Severe Vomiting Verified 05/10/20 00:21 [From Compazine] Home Meds: Home Meds Edmund/D3/Mag11/Zinc/Psychologist Chief/Filiberto/Bor [Caltrate Plus Tablet] 1 each PO DAILY 02/05/18 [History] Fish Oil/DHA/EPA [Fish Oil 1,200 MG] 1 each PO DAILY 02/05/18 [History] Flaxseed Oil 1,000 mg PO DAILY 02/05/18 [History] HCTZ/Triamterene [Maxzide 25-37.5 MG] 1 tab PO DAILY 02/05/18 [History] Magnesium 250 mg PO DAILY 02/05/18 [History] Multivitamin [Daily Multiple Vitamin] 1 each PO DAILY 02/05/18 [History] Pantoprazole Sodium [Protonix] 40 mg PO DAILY 02/05/18 [History] Rosuvastatin [Crestor] 5 mg PO MOWEFR 02/05/18 [History] Vitamin E 400 unit PO DAILY 02/05/18 [History] Metoprolol Tartrate [Lopressor] 25 mg PO DAILY PRN 06/19/19 [History] Rivaroxaban [Xarelto] 20 mg PO DAILY 06/19/19 [History] Thyroid,Pork [[place] Thyroid] 90 mg PO DAILY 06/19/19 [History] Ascorbic Acid [Vitamin C] 1,000 mg PO DAILY 05/10/20 [History] Past Medical History HEENT History: Reports: Impaired Vision Other HEENT History: Wears glasses Cardiovascular History: Reports: Aneurysm, Other (See Below) Other Cardiovascular History: fluid retention Respiratory History: Reports: Asthma, PE Other Respiratory History: pneumonia 08/03/2014 Gastrointestinal History: Reports: GERD Other Genitourinary History: falopian Other INSURANCE CHECKER History: R) ovary removed Musculoskeletal History: Reports: Arthritis Endocrine/Metabolic History: Reports: Hypothyroidism - Past Surgical History HEENT Surgical History: Reports: Other (See Below) Other HEENT Surgeries/Procedures: mother h ad macular degneration and ptis on ocuvite GI Surgical History: Reports: Appendectomy, Cholecystectomy, Colonoscopy Female Surgical History: Reports: Other (See Below) Other Female Surgeries/Procedures: falopian tube and ovary removal Other Oncologic Surgeries/Procedures: R) ovary removed Social & Family History - Tobacco Use Tobacco Use Status *Q: Unknown Ever Used Tobacco - Caffeine Use Caffeine Use: Reports: Coffee - Recreational Drug Use Recreational Drug Use: No - Living Situation & Occupation Living situation: Reports: Occupation: Employed ED ROS GENERAL - Review of Systems Review Of Systems: Comprehensive ROS is negative, except as noted in HPI. ED EXAM, GENERAL - Physical Exam Exam: See Below Free Text/Narrative:: On exam the patient is alert and in no distress. She is comfortable and pleasant. Skin is warm and dry with normal turgor. Head normocephalic atraumatic. EOMI PERRLA. Neck is supple without jugular vein distention. Lungs are clear. Heart is irregularly irregular rate is about 140 on exam. Abdomen is soft and nontender no guarding or rebound. Legs are a bit puffy but there is no loren pitting edema. There is no cyanosis or clubbing of the digits. Neurologically she is grossly intact with fluent speech and no sensory or motor deficit. Her mood is appropriate. She is sociable and good humor. #1 Interpretation EKG Date: 05/10/20 Time: 00:20 Rhythm: A-Fib Rate (Beats/Min): 151 [place]: Normal P-Wave: Absent QRS: Normal QT: Prolonged Comparison: Change From Previous EKG EKG Interpretation Comments: Atrial flutter with RVR #2 Interpretation EKG Date: 05/10/20 Time: 01:55 Rhythm: NSR [place]: Normal P-Wave: Present QRS: Normal ST-T: Normal QT: Normal Comparison: Change From Previous EKG Course - Vital Signs Text/Narrative:: The patient has received several doses of metoprolol as well as Cardizem. Rate has slowed. Blood pressure has dropped a bit it is 100/78 at this point heart rate is in the low 100s sometimes going up to the mid 100s but generally in the 80s and 90s. She has yet to return to stable sinus rhythm. Discussed with Dr. Reyze hospitalist. Patient should be in observation patient until her rhythm settles down which it can be expected to do. She will be going to the intensive care unit under his care. Last Recorded V/S: Last Vital Signs Temp 36.4 C 05/10/20 00:21 Pulse 121 H 05/10/20 01:11 Resp 19 05/10/20 00:21 BP 100/72 05/10/20 01:11 Pulse Ox 96 05/10/20 00:21 - Orders/Labs/Meds Orders: Active Orders 24 hr Category Date Time Status EKG Documentation Completion [RC] STAT Care 05/10/20 00:16 Active EKG Documentation Completion [RC] STAT Care 05/10/20 01:39 Active Chest 1V Frontal [CR] Stat Exams 05/10/20 00:15 Taken CORONAVIRUS COVID-19 ANTONY [MOLEC] Stat Lab 05/10/20 02:20 Received UA RFX ANNITA AND CULT IF INDIC [URIN] Stat Lab 05/10/20 00:16 Ordered Labs: Laboratory Tests 05/10/20 05/10/20 05/10/20 Range/Units 00:25 00:25 00:25 WBC 8.56 (3.98-10.04) K/mm3 RBC 4.88 (3.98-5.22) M/mm3 Hgb 14.5 (11.2-15.7) gm/dl Hct 43.5 (34.1-44.9) % MCV 89.1 (79.4-94.8) fl MCH 29.7 (25.6-32.2) pg MCHC 33.3 (32.2-35.5) g/dl RDW Std Deviation 44.0 (36.4-46.3) fL Plt Count 212 (182-369) K/mm3 MPV 10.2 (9.4-12.3) fl Neutrophils % (Manual) 56 (40-60) % Band Neutrophils % 0 (0-10) % Lymphocytes % (Manual) 31 (20-40) % Atypical Lymphs % 0 % Monocytes % (Manual) 8 (2-10) % Eosinophils % (Manual) 4 (0.7-5.8) % Basophils % (Manual) 1 (0.1-1.2) Platelet Estimate Adequate RBC Morph Comment Normal PT 10.9 (9.7-12.0) SECONDS INR 1.02 D-Dimer, Quantitative (0.19-0.50) mg/L Sodium 144 (136-145) mEq/L Potassium 3.2 L (3.5-5.1) mEq/L Chloride 104 (98-107) mEq/L Carbon Dioxide 28 (21-32) mEq/L Anion Gap 15.2 H (5-15) BUN 15 (7-18) mg/dL Creatinine 1.0 (0.55-1.02) mg/dL Est Cr Clr Drug Dosing 45.78 mL/min Estimated GFR (MDRD) 55 (>60) mL/min BUN/Creatinine Ratio 15.0 (14-18) Glucose 141 H (80-115) mg/dL Calcium 9.3 (8.5-10.1) mg/dL Magnesium 1.7 L (1.8-2.4) mg/dl Total Bilirubin 0.6 (0.2-1.0) mg/dL AST 36 (15-37) U/L ALT 48 (14-59) U/L Alkaline Phosphatase 101 (46-116) U/L Creatine Kinase 117 (26-192) U/L Troponin I < 0.017 (0.00-0.056) ng/mL NT-Pro-B Natriuret Pep (0-125) pg/mL Total Protein 7.5 (6.4-8.2) g/dl Albumin 3.8 (3.4-5.0) g/dl Globulin 3.7 gm/dL Albumin/Globulin Ratio 1.0 (1-2) TSH 3rd Generation 2.555 (0.358-3.74) uIU/mL 05/10/20 05/10/20 Range/Units 00:25 00:25 WBC (3.98-10.04) K/mm3 RBC (3.98-5.22) M/mm3 Hgb (11.2-15.7) gm/dl Hct (34.1-44.9) % MCV (79.4-94.8) fl MCH (25.6-32.2) pg MCHC (32.2-35.5) g/dl RDW Std Deviation (36.4-46.3) fL Plt Count (182-369) K/mm3 MPV (9.4-12.3) fl Neutrophils % (Manual) (40-60) % Band Neutrophils % (0-10) % Lymphocytes % (Manual) (20-40) % Atypical Lymphs % % Monocytes % (Manual) (2-10) % Eosinophils % (Manual) (0.7-5.8) % Basophils % (Manual) (0.1-1.2) Platelet Estimate RBC Morph Comment PT (9.7-12.0) SECONDS INR D-Dimer, Quantitative 0.23 (0.19-0.50) mg/L Sodium (136-145) mEq/L Potassium (3.5-5.1) mEq/L Chloride (98-107) mEq/L Carbon Dioxide (21-32) mEq/L Anion Gap (5-15) BUN (7-18) mg/dL Creatinine (0.55-1.02) mg/dL Est Cr Clr Drug Dosing mL/min Estimated GFR (MDRD) (>60) mL/min BUN/Creatinine Ratio (14-18) Glucose (80-115) mg/dL Calcium (8.5-10.1) mg/dL Magnesium (1.8-2.4) mg/dl Total Bilirubin (0.2-1.0) mg/dL AST (15-37) U/L ALT (14-59) U/L Alkaline Phosphatase (46-116) U/L Creatine Kinase (26-192) U/L Troponin I (0.00-0.056) ng/mL NT-Pro-B Natriuret Pep 95 (0-125) pg/mL Total Protein (6.4-8.2) g/dl Albumin (3.4-5.0) g/dl Globulin gm/dL Albumin/Globulin Ratio (1-2) TSH 3rd Generation (0.358-3.74) uIU/mL Meds: Medications Discontinued Medications Generic Name Dose Route Start Last Admin Trade Name Kikeq PRN Reason Stop Dose Admin Diltiazem HCl 10 mg 05/10/20 01:28 05/10/20 01:34 Diltiazem 50 Mg/10 Ml Sdv IVPUSH 05/10/20 01:29 10 mg ONETIME ONE Administration Metoprolol Tartrate 2.5 mg 05/10/20 00:26 05/10/20 00:31 Metoprolol Tartrate 5 Mg/5 Ml Sdv IVPUSH 05/10/20 00:27 2.5 mg ONETIME ONE Administration Metoprolol Tartrate 2.5 mg 05/10/20 00:35 05/10/20 00:36 Metoprolol Tartrate 5 Mg/5 Ml Sdv IVPUSH 05/10/20 00:36 2.5 mg ONETIME ONE Administration Metoprolol Tartrate 2.5 mg 05/10/20 01:06 05/10/20 01:11 Metoprolol Tartrate 5 Mg/5 Ml Sdv IVPUSH 05/10/20 01:07 2.5 mg ONETIME ONE Administration Departure - Departure Time of Disposition: 02:40 Disposition: Refer to Observation Condition: Fair Clinical Impression: Atrial flutter with rapid ventricular response Referrals: Edmundo Zendejas MD [Primary Care Provider] - Forms: ED Department Discharge Critical Care Note - Critical Care Note Total Time (mins): 40 Comments: The patient is come in with atrial flutter and rapid ventricular response. I remained at bedside where we have done several interventions in attempt to put her back into sinus rhythm. After 3 doses of metoprolol and an IV dose of Cardizem her rate has slowed but she has yet to convert. I remained at bedside for 30 minutes and spent an additional 20 minutes of consultation with the patient her Dr. Reyez and review of her records. Sepsis Event Note (ED) - Evaluation Sepsis Screening Result: No Definite Risk - Focused Exam Vital Signs: Vital Signs Temp Pulse Pulse Resp BP BP Pulse Ox 05/10/20 01:11 121 H 100/72 05/10/20 00:36 130 H 132/101 H 05/10/20 00:31 136 H 119/80 05/10/20 00:21 36.4 C 150 H 19 134/90 96 - My Orders Last 24 Hours: My Active Orders 05/10/20 00:15 Chest 1V Frontal [CR] Stat 05/10/20 00:16 EKG Documentation Completion [RC] STAT UA RFX ANNITA AND CULT IF INDIC [URIN] Stat 05/10/20 01:39 EKG Documentation Completion [RC] STAT 05/10/20 02:20 CORONAVIRUS COVID-19 ANTONY [MOLEC] Stat - Assessment/Plan Last 24 Hours: My Active Orders 05/10/20 00:15 Chest 1V Frontal [CR] Stat 05/10/20 00:16 EKG Documentation Completion [RC] STAT UA RFX ANNITA AND CULT IF INDIC [URIN] Stat 05/10/20 01:39 EKG Documentation Completion [RC] STAT 05/10/20 02:20 CORONAVIRUS COVID-19 ANTONY [MOLEC] Stat
[2020-05-10] MEDS ORDERED: Diltiazem 100 MG in Sodium Chloride 0.9% 100 ML IV SCH (03:00)
[2020-05-10] MEDS ORDERED: Acetaminophen 325 MG Tab PO PRN (04:00)
[2020-05-10] MEDS ORDERED: Potassium Chloride 20 MEQ Tab.ER PO ONE (04:02)
--- NOTE | 2020-05-10 04:03 | PCM.HP.2 ---
H&P History of Present Illness - General Date of Service: 05/10/20 Admit Problem/Dx: Admission Diagnosis/Problem Admission Diagnosis/Problem Atrial flutter with rapid ventricular response - History of Present Illness Initial Comments - Free Text/Narative: 64-year-old female with history of atrial fibrillation had palpitations tonight without chest pain or shortness of breath. Patient last week returned from [facility] and when she had her medications renewed it looks like she did not receive her metoprolol. Patient noted on Thursday evening that if she rolled on her left side she felt palpitations but if she laid on her right side she did not. She has her medications in a medication box and her partner set these up for her. Last night she went to the ambulance bay and put herself on a monitor and found herself in A. fib. Her rate was in the 160s so she went home, found that she was not taking her medications correctly and took metoprolol 25 mg, got dressed, and came to the emergency department. Patient was given Lopressor IV 2.5 mg x 3 and Cardizem 10 mg. In the emergency department her rate was still in the low 100s. [place]ye that she may need a Cardizem drip so she was transferred to the ICU. Just before arriving at the ICU she went into sinus rhythm. Now she feels fine, no chest pain, no palpitations, no shortness of breath. - Related Data Allergies/Adverse Reactions: Allergies Allergy/AdvReac Type Severity Reaction Status Date / Time shellfish derived Allergy Severe Airway Verified 05/10/20 00:21 Tightness prochlorperazine edisylate AdvReac Severe Vomiting Verified 05/10/20 00:21 [From Compazine] prochlorperazine maleate AdvReac Severe Vomiting Verified 05/10/20 00:21 [From Compazine] Home Medications: Home Meds Edmund/D3/Mag11/Zinc/[employer]/Filiberto/Bor [Caltrate 600+D Plus Tablet] 1 each PO DAILY 02/05/18 [History] Fish Oil/DHA/EPA [Fish Oil 1,200 MG] 1 each PO DAILY 02/05/18 [History] Flaxseed Oil 1,000 mg PO DAILY 02/05/18 [History] HCTZ/Triamterene [Maxzide 25-37.5 MG] 1 tab PO DAILY 02/05/18 [History] Magnesium 250 mg PO DAILY 02/05/18 [History] Multivitamin [Daily Multiple Vitamin] 1 each PO DAILY 02/05/18 [History] Pantoprazole Sodium [Protonix] 40 mg PO DAILY 02/05/18 [History] Rosuvastatin [Crestor] 5 mg PO MOWEFR 02/05/18 [History] Vitamin E 400 unit PO DAILY 02/05/18 [History] Metoprolol Tartrate [Lopressor] 25 mg PO DAILY PRN 06/19/19 [History] Rivaroxaban [Xarelto] 20 mg PO DAILY 06/19/19 [History] Thyroid,Pork [[place] Thyroid] 90 mg PO DAILY 06/19/19 [History] Ascorbic Acid [Vitamin C] 1,000 mg PO DAILY 05/10/20 [History] Past Medical History HEENT History: Reports: Impaired Vision Other HEENT History: Wears glasses Cardiovascular History: Reports: Aneurysm, Arrhythmia, Other (See Below) Other Cardiovascular History: fluid retention, atrial flutter Respiratory History: Reports: Asthma, PE Other Respiratory History: pneumonia 08/03/2014 Gastrointestinal History: Reports: GERD Other Genitourinary History: falopian Other OB/BYN History: R) ovary removed Musculoskeletal History: Reports: Arthritis Endocrine/Metabolic History: Reports: Hypothyroidism - Past Surgical History HEENT Surgical History: Reports: Other (See Below) Other HEENT Surgeries/Procedures: mother h ad macular degneration and ptis on ocuvite GI Surgical History: Reports: Appendectomy, Cholecystectomy, Colonoscopy Female Surgical History: Reports: Other (See Below) Other Female Surgeries/Procedures: falopian tube and ovary removal Other Oncologic Surgeries/Procedures: R) ovary removed Social & Family History - Tobacco Use Tobacco Use Status *Q: Unknown Ever Used Tobacco - Caffeine Use Caffeine Use: Reports: Coffee - Recreational Drug Use Recreational Drug Use: No - Living Situation & Occupation Living situation: Reports: Occupation: Employed H&P Review of Systems - Review of Systems: Review Of Systems: Comprehensive ROS is negative, except as noted in HPI. Exam - Exam Exam: See Below - Vital Signs Vital Signs: Last Vital Signs Temp 97.5 F 05/10/20 00:21 Pulse 121 H 05/10/20 01:11 Resp 19 05/10/20 00:21 BP 100/72 05/10/20 01:11 Pulse Ox 96 05/10/20 00:21 Weight: 212 lb - Exam Quality Assessment: No: Supplemental Oxygen General: Alert, Oriented, 4 HEENT: Conjunctiva Clear, Mucosa Moist & [place], Normal Nasal Septum Neck: Supple, Trachea Midline, 2 Lungs: Clear to Auscultation, Normal Respiratory Effort Cardiovascular: Regular Rate, Regular Rhythm GI/Abdominal Exam: Normal Bowel Sounds, Soft, Non-Tender, No Organomegaly, No Distention, No Abnormal Bruit Extremities: Normal Inspection, Normal Range of Motion, Non-Tender, No Pedal Edema, Normal Capillary Refill Skin: Warm, Dry, Intact Neurological: Cranial Nerves Intact Neuro Extensive - Mental Status: Alert, Oriented x3, Normal Mood/Affect, Normal Cognition, Memory Intact Psychiatric: Alert, Normal Affect, Normal Mood - Patient Data Lab Results Last 24 hrs: Laboratory Results - last 24 hr 05/10/20 05/10/20 05/10/20 Range/Units 00:25 00:25 00:25 WBC 8.56 (3.98-10.04) K/mm3 RBC 4.88 (3.98-5.22) M/mm3 Hgb 14.5 (11.2-15.7) gm/dl Hct 43.5 (34.1-44.9) % MCV 89.1 (79.4-94.8) fl MCH 29.7 (25.6-32.2) pg MCHC 33.3 (32.2-35.5) g/dl RDW Std Deviation 44.0 (36.4-46.3) fL Plt Count 212 (182-369) K/mm3 MPV 10.2 (9.4-12.3) fl Neutrophils % (Manual) 56 (40-60) % Band Neutrophils % 0 (0-10) % Lymphocytes % (Manual) 31 (20-40) % Atypical Lymphs % 0 % Monocytes % (Manual) 8 (2-10) % Eosinophils % (Manual) 4 (0.7-5.8) % Basophils % (Manual) 1 (0.1-1.2) Platelet Estimate Adequate RBC Morph Comment Normal PT 10.9 (9.7-12.0) SECONDS INR 1.02 D-Dimer, Quantitative (0.19-0.50) mg/L Sodium 144 (136-145) mEq/L Potassium 3.2 L (3.5-5.1) mEq/L Chloride 104 (98-107) mEq/L Carbon Dioxide 28 (21-32) mEq/L Anion Gap 15.2 H (5-15) BUN 15 (7-18) mg/dL Creatinine 1.0 (0.55-1.02) mg/dL Est Cr Clr Drug Dosing 45.78 mL/min Estimated GFR (MDRD) 55 (>60) mL/min BUN/Creatinine Ratio 15.0 (14-18) Glucose 141 H (80-115) mg/dL Calcium 9.3 (8.5-10.1) mg/dL Magnesium 1.7 L (1.8-2.4) mg/dl Total Bilirubin 0.6 (0.2-1.0) mg/dL AST 36 (15-37) U/L ALT 48 (14-59) U/L Alkaline Phosphatase 101 (46-116) U/L Creatine Kinase 117 (26-192) U/L Troponin I < 0.017 (0.00-0.056) ng/mL NT-Pro-B Natriuret Pep (0-125) pg/mL Total Protein 7.5 (6.4-8.2) g/dl Albumin 3.8 (3.4-5.0) g/dl Globulin 3.7 gm/dL Albumin/Globulin Ratio 1.0 (1-2) TSH 3rd Generation 2.555 (0.358-3.74) uIU/mL SARS-CoV-2 RNA (ANTONY) (NEGATIVE) 05/10/20 05/10/20 05/10/20 Range/Units 00:25 00:25 02:20 WBC (3.98-10.04) K/mm3 RBC (3.98-5.22) M/mm3 Hgb (11.2-15.7) gm/dl Hct (34.1-44.9) % MCV (79.4-94.8) fl MCH (25.6-32.2) pg MCHC (32.2-35.5) g/dl RDW Std Deviation (36.4-46.3) fL Plt Count (182-369) K/mm3 MPV (9.4-12.3) fl Neutrophils % (Manual) (40-60) % Band Neutrophils % (0-10) % Lymphocytes % (Manual) (20-40) % Atypical Lymphs % % Monocytes % (Manual) (2-10) % Eosinophils % (Manual) (0.7-5.8) % Basophils % (Manual) (0.1-1.2) Platelet Estimate RBC Morph Comment PT (9.7-12.0) SECONDS INR D-Dimer, Quantitative 0.23 (0.19-0.50) mg/L Sodium (136-145) mEq/L Potassium (3.5-5.1) mEq/L Chloride (98-107) mEq/L Carbon Dioxide (21-32) mEq/L Anion Gap (5-15) BUN (7-18) mg/dL Creatinine (0.55-1.02) mg/dL Est Cr Clr Drug Dosing mL/min Estimated GFR (MDRD) (>60) mL/min BUN/Creatinine Ratio (14-18) Glucose (80-115) mg/dL Calcium (8.5-10.1) mg/dL Magnesium (1.8-2.4) mg/dl Total Bilirubin (0.2-1.0) mg/dL AST (15-37) U/L ALT (14-59) U/L Alkaline Phosphatase (46-116) U/L Creatine Kinase (26-192) U/L Troponin I (0.00-0.056) ng/mL NT-Pro-B Natriuret Pep 95 (0-125) pg/mL Total Protein (6.4-8.2) g/dl Albumin (3.4-5.0) g/dl Globulin gm/dL Albumin/Globulin Ratio (1-2) TSH 3rd Generation (0.358-3.74) uIU/mL SARS-CoV-2 RNA (ANTONY) Negative (NEGATIVE) Result Diagrams: 05/10/20 00:25 05/10/20 00:25 Sepsis Event Note - Evaluation Sepsis Screening Result: No Definite Risk - Focused Exam Vital Signs: Vital Signs Temp Pulse Pulse Resp BP BP Pulse Ox 05/10/20 01:11 121 H 100/72 05/10/20 00:36 130 H 132/101 H 05/10/20 00:31 136 H 119/80 05/10/20 00:21 97.5 F 150 H 19 134/90 96 - Problem List (1) Atrial fibrillation with RVR SNOMED Code(s): 375230248280996 ICD Code: I48.91 - UNSPECIFIED ATRIAL FIBRILLATION Status: Acute (2) Hypokalemia SNOMED Code(s): 64208176 ICD Code: E87.6 - HYPOKALEMIA Status: Acute (3) Hypomagnesemia SNOMED Code(s): 036635028 ICD Code: E83.42 - HYPOMAGNESEMIA Status: Acute Problem List Initiated/Reviewed/Updated: Yes Orders Last 24hrs: Active Orders 24 hr Category Date Time Status Patient Status [ADT] Routine ADT 05/10/20 03:57 Active EKG Documentation Completion [RC] STAT Care 05/10/20 00:16 Active EKG Documentation Completion [RC] STAT Care 05/10/20 01:39 Active Oxygen Therapy [RC] PRN Care 05/10/20 04:00 Ordered Up ad Amrita [RC] ASDIRECTED Care 05/10/20 04:00 Ordered VTE/DVT Education [RC] PER UNIT ROUTINE Care 05/10/20 04:00 Ordered Vital Signs [RC] Q4H Care 05/10/20 04:00 Ordered Regular Diet [DIET] Diet 05/10/20 Breakfast Ordered Chest 1V Frontal [CR] Stat Exams 05/10/20 00:15 Taken UA RFX ANNITA AND CULT IF INDIC [URIN] Stat Lab 05/10/20 00:16 Ordered Acetaminophen [TylenoL] Med 05/10/20 04:00 Ordered 650 mg PO Q4H PRN Diltiazem [Cardizem] 100 mg Med 05/10/20 03:00 Active Sodium Chloride 0.9% [Normal Saline] 100 ml IV TITRATE Magnesium Oxide Med 05/10/20 09:00 Ordered 400 mg PO BID Potassium Chloride [Klor-Con M20] Med 05/10/20 04:02 Once 40 meq PO ONETIME ONE Resuscitation Status Routine Resus Stat 05/10/20 04:00 Ordered Medication Orders Acetaminophen (Acetaminophen 325 Mg Tab) 650 mg PO Q4H PRN PRN Reason: Pain (Mild 1-3)/fever Diltiazem HCl 100 mg/ Sodium (Chloride) 100 mls @ 5 mls/hr IV TITRATE BRET; Protocol Assessment/Plan Comment:: 64-year-old female with history of atrial fibrillation was without her medication, metoprolol, for the last week and developed symptomatic rapid ventricular response. She took 25 mg of what sounds like metoprolol succinate prior to arrival at the emergency department last night. Given a total of Lopressor 7.5 mg IV in the emergency department and Cardizem 10 mg IV x1. Assessment Atrial fibrillation with rapid ventricular response * Patient is currently in sinus rhythm when she arrived on the floor. * Blood pressure is in the upper 90s and low 100s systolic. * No further treatment necessary. * Heart rate in the 70s to 80s. Plan Watch patient for the next 6+ hours and if she continues in sinus rhythm will discharge home. Hypokalemia/hypomagnesemia Potassium 3.2, magnesium 1.7 Plan Potassium 40 mEq p.o. x1 and magnesium 400 mg x 1 VTE prophylaxis with her home Xarelto CODE STATUS: Full code anticipate discharge In less than 24 hours. - Mortality Measure Prognosis:: Good
--- NOTE | 2020-05-10 08:46 | CR ---
Chest: Portable view of the chest was obtained. Comparison: Prior chest x-ray of 06/19/19. Heart size and mediastinum are within normal limits for portable technique. Lungs show no acute parenchymal change. Slight scoliosis and scattered degenerative change is noted within the spine. Impression: 1. Nothing acute is appreciated on portable chest x-ray. Diagnostic code #2
[2020-05-10] MEDS ORDERED: Magnesium Oxide 400 MG Tab PO SCH (09:00)
[2020-05-10 11:10] VITALS: BP 110/60
--- NOTE | 2020-05-10 11:43 | PCM.DCSUM1 ---
Discharge Summary - Hospital Course HPI Initial Comments: 64-year-old female with history of atrial fibrillation had palpitations tonight without chest pain or shortness of breath. Patient last week returned from [place] and when she had her medications renewed it looks like she did not receive her metoprolol. Patient noted on Thursday evening that if she rolled on her left side she felt palpitations but if she laid on her right side she did not. She has her medications in a medication box and her partner set these up for her. Last night she went to the ambulance bay and put herself on a monitor and found herself in A. fib. Her rate was in the 160s so she went home, found that she was not taking her medications correctly and took metoprolol 25 mg, got dressed, and came to the emergency department. Patient was given Lopressor IV 2.5 mg x 3 and Cardizem 10 mg. In the emergency department her rate was still in the low 100s. [place] that she may need a Cardizem drip so she was transferred to the ICU. Just before arriving at the ICU she went into sinus rhythm. Now she feels fine, no chest pain, no palpitations, no shortness of breath. Assessment/Plan Comment:: 64-year-old female with history of atrial fibrillation was without her medication, metoprolol, for the last week and developed symptomatic rapid ventricular response. She took 25 mg of what sounds like metoprolol succinate prior to arrival at the emergency department last night. Given a total of Lopressor 7.5 mg IV in the emergency department and Cardizem 10 mg IV x1. Assessment Atrial fibrillation with rapid ventricular response * Patient is currently in sinus rhythm when she arrived on the floor. * Blood pressure is in the upper 90s and low 100s systolic. * No further treatment necessary. * Heart rate in the 70s to 80s. Plan Watch patient for the next 6+ hours and if she continues in sinus rhythm will discharge home. Hypokalemia/hypomagnesemia Potassium 3.2, magnesium 1.7 Plan Potassium 40 mEq p.o. x1 and magnesium 400 mg x 1 VTE prophylaxis with her home Xarelto CODE STATUS: Full code anticipate discharge In less than 24 hours. - Mortality Measure Prognosis:: Good Diagnosis: Stroke: No - Discharge Data Discharge Date: 05/10/20 Discharge Disposition: Home, Self-Care 01 Condition: Good - Referral to Home Health Primary Care Physician: Edmundo Zendejas MD - Discharge Diagnosis/Problem(s) (1) Atrial fibrillation with RVR SNOMED Code(s): 290589003435854 ICD Code: I48.91 - UNSPECIFIED ATRIAL FIBRILLATION Status: Acute (2) Hypokalemia SNOMED Code(s): 38413999 ICD Code: E87.6 - HYPOKALEMIA Status: Acute (3) Hypomagnesemia SNOMED Code(s): 108259303 ICD Code: E83.42 - HYPOMAGNESEMIA Status: Acute - Patient Summary/Data Hospital Course: Patient maintained in sinus rhythm into the late morning and was discharged on her home medications. - Patient Instructions Diet: Heart Healthy Diet Other/Special Instructions: Please get a recheck of your potassium and magnesium next week. - Discharge Plan *PRESCRIPTION DRUG MONITORING PROGRAM REVIEWED*: No *COPY OF PRESCRIPTION DRUG MONITORING REPORT IN PATIENT LARA: No Home Medications: Home Meds Edmund/D3/Mag11/Zinc/Head Chopper/Filiberto/Bor [Caltrate 600+D Plus Tablet] 1 each PO DAILY 02/05/18 [History] Fish Oil/DHA/EPA [Fish Oil 1,200 MG] 1 each PO DAILY 02/05/18 [History] Flaxseed Oil 1,000 mg PO DAILY 02/05/18 [History] HCTZ/Triamterene [Maxzide 25-37.5 MG] 1 tab PO DAILY 02/05/18 [History] Magnesium 250 mg PO DAILY 02/05/18 [History] Multivitamin [Daily Multiple Vitamin] 1 each PO DAILY 02/05/18 [History] Pantoprazole Sodium [Protonix] 40 mg PO DAILY 02/05/18 [History] Rosuvastatin [Crestor] 5 mg PO MOWEFR 02/05/18 [History] Vitamin E 400 unit PO DAILY 02/05/18 [History] Metoprolol Tartrate [Lopressor] 25 mg PO DAILY PRN 06/19/19 [History] Rivaroxaban [Xarelto] 20 mg PO DAILY 06/19/19 [History] Thyroid,Pork [[place] Thyroid] 90 mg PO DAILY 06/19/19 [History] Ascorbic Acid [Vitamin C] 1,000 mg PO DAILY 05/10/20 [History] Oxygen Therapy Mode: Room Air Patient Handouts: Atrial Fibrillation, [id number] Forms: ED Department Discharge Referrals: Edmundo Zendejas MD [Primary Care Provider] - 05/16/20 2:30 pm (come 15 minutes prior to the appointment to register) - Discharge Summary/Plan Comment DC Time >30 min.: No - Patient Data Vitals - Most Recent: Last Vital Signs Temp 98.5 F 05/10/20 11:09 Pulse 121 H 05/10/20 01:11 Resp 16 05/10/20 11:09 BP 110/60 05/10/20 11:09 Pulse Ox 96 05/10/20 11:09 Weight - Most Recent: 222 lb Lab Results - Last 24 hrs: Laboratory Results - last 24 hr 05/10/20 05/10/20 05/10/20 Range/Units 00:25 00:25 00:25 WBC 8.56 (3.98-10.04) K/mm3 RBC 4.88 (3.98-5.22) M/mm3 Hgb 14.5 (11.2-15.7) gm/dl Hct 43.5 (34.1-44.9) % MCV 89.1 (79.4-94.8) fl MCH 29.7 (25.6-32.2) pg MCHC 33.3 (32.2-35.5) g/dl RDW Std Deviation 44.0 (36.4-46.3) fL Plt Count 212 (182-369) K/mm3 MPV 10.2 (9.4-12.3) fl Neutrophils % (Manual) 56 (40-60) % Band Neutrophils % 0 (0-10) % Lymphocytes % (Manual) 31 (20-40) % Atypical Lymphs % 0 % Monocytes % (Manual) 8 (2-10) % Eosinophils % (Manual) 4 (0.7-5.8) % Basophils % (Manual) 1 (0.1-1.2) Platelet Estimate Adequate RBC Morph Comment Normal PT 10.9 (9.7-12.0) SECONDS INR 1.02 D-Dimer, Quantitative (0.19-0.50) mg/L Sodium 144 (136-145) mEq/L Potassium 3.2 L (3.5-5.1) mEq/L Chloride 104 (98-107) mEq/L Carbon Dioxide 28 (21-32) mEq/L Anion Gap 15.2 H (5-15) BUN 15 (7-18) mg/dL Creatinine 1.0 (0.55-1.02) mg/dL Est Cr Clr Drug Dosing 45.78 mL/min Estimated GFR (MDRD) 55 (>60) mL/min BUN/Creatinine Ratio 15.0 (14-18) Glucose 141 H (80-115) mg/dL Calcium 9.3 (8.5-10.1) mg/dL Magnesium 1.7 L (1.8-2.4) mg/dl Total Bilirubin 0.6 (0.2-1.0) mg/dL AST 36 (15-37) U/L ALT 48 (14-59) U/L Alkaline Phosphatase 101 (46-116) U/L Creatine Kinase 117 (26-192) U/L Troponin I < 0.017 (0.00-0.056) ng/mL NT-Pro-B Natriuret Pep (0-125) pg/mL Total Protein 7.5 (6.4-8.2) g/dl Albumin 3.8 (3.4-5.0) g/dl Globulin 3.7 gm/dL Albumin/Globulin Ratio 1.0 (1-2) TSH 3rd Generation 2.555 (0.358-3.74) uIU/mL SARS-CoV-2 RNA (ANTONY) (NEGATIVE) 05/10/20 05/10/20 05/10/20 Range/Units 00:25 00:25 02:20 WBC (3.98-10.04) K/mm3 RBC (3.98-5.22) M/mm3 Hgb (11.2-15.7) gm/dl Hct (34.1-44.9) % MCV (79.4-94.8) fl MCH (25.6-32.2) pg MCHC (32.2-35.5) g/dl RDW Std Deviation (36.4-46.3) fL Plt Count (182-369) K/mm3 MPV (9.4-12.3) fl Neutrophils % (Manual) (40-60) % Band Neutrophils % (0-10) % Lymphocytes % (Manual) (20-40) % Atypical Lymphs % % Monocytes % (Manual) (2-10) % Eosinophils % (Manual) (0.7-5.8) % Basophils % (Manual) (0.1-1.2) Platelet Estimate RBC Morph Comment PT (9.7-12.0) SECONDS INR D-Dimer, Quantitative 0.23 (0.19-0.50) mg/L Sodium (136-145) mEq/L Potassium (3.5-5.1) mEq/L Chloride (98-107) mEq/L Carbon Dioxide (21-32) mEq/L Anion Gap (5-15) BUN (7-18) mg/dL Creatinine (0.55-1.02) mg/dL Est Cr Clr Drug Dosing mL/min Estimated GFR (MDRD) (>60) mL/min BUN/Creatinine Ratio (14-18) Glucose (80-115) mg/dL Calcium (8.5-10.1) mg/dL Magnesium (1.8-2.4) mg/dl Total Bilirubin (0.2-1.0) mg/dL AST (15-37) U/L ALT (14-59) U/L Alkaline Phosphatase (46-116) U/L Creatine Kinase (26-192) U/L Troponin I (0.00-0.056) ng/mL NT-Pro-B Natriuret Pep 95 (0-125) pg/mL Total Protein (6.4-8.2) g/dl Albumin (3.4-5.0) g/dl Globulin gm/dL Albumin/Globulin Ratio (1-2) TSH 3rd Generation (0.358-3.74) uIU/mL SARS-CoV-2 RNA (ANTONY) Negative (NEGATIVE) Med Orders - Current: Current Medications Acetaminophen (Acetaminophen 325 Mg Tab) 650 mg PO Q4H PRN PRN Reason: Pain (Mild 1-3)/fever Diltiazem HCl 100 mg/ Sodium (Chloride) 100 mls @ 5 mls/hr IV TITRATE BRET; Protocol Magnesium Oxide (Magnesium Oxide 400 Mg Tab) 400 mg PO BID BRET Last Admin: 05/10/20 09:30 Dose: Not Given Documented by: Discontinued Medications Diltiazem HCl (Diltiazem 50 Mg/10 Ml Sdv) 10 mg IVPUSH ONETIME ONE Stop: 05/10/20 01:29 Last Admin: 05/10/20 01:34 Dose: 10 mg Documented by: Metoprolol Tartrate (Metoprolol Tartrate 5 Mg/5 Ml Sdv) 2.5 mg IVPUSH ONETIME ONE Stop: 05/10/20 00:27 Last Admin: 05/10/20 00:31 Dose: 2.5 mg Documented by: Metoprolol Tartrate (Metoprolol Tartrate 5 Mg/5 Ml Sdv) 2.5 mg IVPUSH ONETIME ONE Stop: 05/10/20 00:36 Last Admin: 05/10/20 00:36 Dose: 2.5 mg Documented by: Metoprolol Tartrate (Metoprolol Tartrate 5 Mg/5 Ml Sdv) 2.5 mg IVPUSH ONETIME ONE Stop: 05/10/20 01:07 Last Admin: 05/10/20 01:11 Dose: 2.5 mg Documented by: Potassium Chloride (Potassium Chloride 20 Meq Tab.Er) 40 meq PO ONETIME ONE Stop: 05/10/20 04:03 Last Admin: 05/10/20 04:53 Dose: 40 meq Documented by:
== END 2020-05-10 10:45 | disposition home or self-care (01) ==
LOC: JD.ED 00:11 → INTOOBSV 03:23 → JD.ICU 03:23
PROVIDERS: ADMIT Family Medicine; ATTEND Family Medicine
DX: I48.91 Unspecified atrial fibrillation (principal); E87.6 Hypokalemia; E83.42 Hypomagnesemia; E03.9 Hypothyroidism, unspecified; J45.909 Unspecified asthma, uncomplicated; Z20.822 Contact with and (suspected) exposure to COVID-19; Z88.8 Allergy status to other drugs, medicaments and biological substances; Z91.013 Allergy to seafood; Z87.01 Personal history of pneumonia (recurrent); Z98.890 Other specified postprocedural states; Z79.899 Other long term (current) drug therapy
CPT/HCPCS: 36415; 71045; 80053; 82550; 83735; 83880; 84443; 84484; 85007; 85027; 85379; 85610; 93005; A9270; J3490; U0002; 93010; 96374; 96375; 96376; 99234; 99285-25; 99291; G0378

== ENCOUNTER 2020-09-27 06:07 | Emergency (ER) | payer BC ==
[2020-09-27] MEDS ORDERED: Sodium Chloride 0.9% 10 ML Syringe FLUSH PRN (06:30)
[2020-09-27] MEDS ORDERED: Metoprolol Tartrate 5 MG/5 ML SDV IVPUSH ONE (06:31)
--- NOTE | 2020-09-27 06:34 | EDM.PDOC ---
<Akil Thurman García - Last Filed: 09/27/20 06:51> ED HPI GENERAL MEDICAL PROBLEM - General Chief Complaint: Cardiovascular Problem Stated Complaint: AFIB Time Seen by Provider: 09/27/20 06:19 Source of Information: Reports: Patient, RN Notes Reviewed - History of Present Illness INITIAL COMMENTS - FREE TEXT/NARRATIVE: 65 yr old female with onset of a fib, RVR about 3 to 4 hrs ago. She is on low dose metropol but only taking 25 mg daily. She has taken that this AM plus an extra 25 mg PO RN ACUTE CARE. No chest pain or difficulty breathing. Has not been recently ill. At least 1 prior episode of a fib with RVR about 5 months ago. - Related Data Allergies Allergy/AdvReac Type Severity Reaction Status Date / Time shellfish derived Allergy Severe Airway Verified 09/27/20 06:12 Tightness prochlorperazine edisylate AdvReac Mild Vomiting Verified 09/27/20 06:12 [From Compazine] prochlorperazine maleate AdvReac Mild Vomiting Verified 09/27/20 06:12 [From Compazine] Home Meds: Home Meds Edmund/D3/Mag11/Zinc/[employer]/Filiberto/Bor [Caltrate 600+D Plus Tablet] 1 each PO DAILY 02/05/18 [History] Fish Oil/DHA/EPA [Fish Oil 1,200 MG] 1 each PO DAILY 02/05/18 [History] Flaxseed Oil 1,000 mg PO DAILY 02/05/18 [History] HCTZ/Triamterene [Maxzide 25-37.5 MG] 1 tab PO DAILY 02/05/18 [History] Magnesium 250 mg PO DAILY 02/05/18 [History] Multivitamin [Daily Multiple Vitamin] 1 each PO DAILY 02/05/18 [History] Pantoprazole Sodium [Protonix] 40 mg PO DAILY 02/05/18 [History] Rosuvastatin [Crestor] 5 mg PO MOWEFR 02/05/18 [History] Vitamin E 400 unit PO DAILY 02/05/18 [History] Metoprolol Tartrate [Lopressor] 25 mg PO DAILY 06/19/19 [History] Rivaroxaban [Xarelto] 20 mg PO DAILY 06/19/19 [History] Thyroid,Pork [[place] Thyroid] 90 mg PO DAILY 06/19/19 [History] Ascorbic Acid [Vitamin C] 1,000 mg PO DAILY 05/10/20 [History] atenoloL [Atenolol] 25 mg PO DAILY #30 tablet 09/27/20 [Rx] Past Medical History HEENT History: Reports: Cataract, Impaired Vision Other HEENT History: Wears glasses Cardiovascular History: Reports: Afib, Aneurysm, Arrhythmia, Other (See Below) Other Cardiovascular History: fluid retention, atrial flutter Respiratory History: Reports: Asthma Other Respiratory History: pneumonia 08/03/2014 Gastrointestinal History: Reports: GERD Other Genitourinary History: oopherectomy (right). 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 Musculoskeletal History: Reports: Arthritis Neurological History: Reports: Migraines Endocrine/Metabolic History: Reports: Hypothyroidism - Infectious Disease History Infectious Disease History: Reports: Chicken Pox Other Infectious Disease History: cold sore - Past Surgical History HEENT Surgical History: Reports: Other (See Below) Other HEENT Surgeries/Procedures: mother h ad macular degneration and ptis on ocuvite GI Surgical History: Reports: Appendectomy, Cholecystectomy, Colonoscopy Female Surgical History: Reports: Other (See Below) Other Female Surgeries/Procedures: falopian tube and ovary removal Other Oncologic Surgeries/Procedures: R) ovary removed Social & Family History - Family History Family Medical History: No Pertinent Family History Cardiac: Reports: Aneurysm, Arrhythmia, Bypass, CAD, Heart Failure, Heart Valve Replacement, High Cholesterol, Hypertension, VT, Pacemaker Respiratory: Reports: Asthma, COPD GI: Reports: Cholelithiasis, Colon Polyps, Diverticulitis, GERD Other GI Family History: brother colon cancer Musculoskeletal: Reports: Arthritis, Fibromyalgia Neurological: Reports: CVA Other Neurological Family History: brother had CVA 20 years ago Oncologic: Reports: Colon - Caffeine Use Caffeine Use: Reports: Coffee, Soda Caffeine Use Comment: 1 cup coffee and diet coke - Living Situation & Occupation Living situation: Reports: 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 Denies: Chest Pain GI/Abdominal: Denies: Abdominal Pain, Vomiting Musculoskeletal: Denies: Shoulder Pain, Arm Pain Skin: Reports: No Symptoms Neurological: Reports: No Symptoms ED EXAM, GENERAL - Physical Exam Exam: See Below General Appearance: Alert, No Apparent Distress Throat/Mouth: Normal Inspection Head: Atraumatic Neck: Supple Respiratory/Chest: No Respiratory Distress, Lungs Clear, Normal Breath Sounds Cardiovascular: Tachycardia, Irregularly Irregular Extremities: No: Pedal Edema, Leg Pain, Increased Warmth, Redness Neurological: Alert, Oriented, No Motor/Sensory Deficits Skin Exam: Warm, Dry, Normal Color #1 Interpretation EKG Date: 09/27/20 Rhythm: A-Fib Rate (Beats/Min): 121 [place]: LAD-Left [place] Deviation P-Wave: Absent QRS: Normal ST-T: Normal QT: Normal Course - Re-Assessments/Exams Free Text/Narrative Re-Assessment/Exam: 09/27/20 07:08. Have given lopressor 5 mg IV. That did bring her rate down a bit but also dropped her BP to 89/60. She is tolerating that fine but will have to go to diltiazem and or dig. She is not in failure. Have ordered a 250 ml NS bolus. It is after change of shift, will transfer care to Dr Juarez. Departure - Departure Disposition: Home, Self-Care 01 Clinical Impression: Paroxysmal atrial fibrillation with RVR Prescriptions: atenoloL [Atenolol] 25 mg PO DAILY #30 tablet Instructions: Atrial Fibrillation, Riuu-of-Kmhl Referrals: Edmundo Zendejas MD [Primary Care Provider] - Forms: ED Department Discharge Additional Instructions: Evaluation in the emergency room today in regards to recurrent paroxysmal atrial fibrillation with rapid ventricular rate. You are currently maintained on metoprolol tartrate 25 mg daily. In the emergency room you were treated with Lopressor 5 mg intravenously but this did drop your blood pressure substantially. Therefore we subsequently treated you with Corvert 1 mg int ravenously infused over 15 minutes x 2 doses with success in converting you back to sinus rhythm in the 50s and low 60s. It would be my suggestion to change her metoprolol to the succinate form which is longer acting throughout the full 24 hours in the hopes that this may prevent further bouts of paroxysmal atrial fibrillation. Sepsis Event Note (ED) - Evaluation Sepsis Screening Result: No Definite Risk <Joe Juarez - Last Filed: 09/27/20 09:49> Course - Vital Signs Last Recorded V/S: Last Vital Signs Temp 35.8 C L 09/27/20 06:13 Pulse 53 L 09/27/20 09:07 Resp 18 09/27/20 09:07 BP 95/72 09/27/20 09:07 Pulse Ox 98 09/27/20 09:07 - Orders/Labs/Meds Orders: Active Orders 24 hr Category Date Time Status Sodium Chloride 0.9% [Normal Saline] 1,000 ml Med 09/27/20 07:00 Active IV ONETIME Sodium Chloride 0.9% [Saline Flush] Med 09/27/20 06:30 Active 10 ml FLUSH ASDIRECTED PRN Peripheral IV Insertion Adult [OM.PC] Stat Oth 09/27/20 06:31 Ordered Medication Orders Sodium Chloride (Normal Saline) 1,000 mls @ 999 mls/hr IV ONETIME BRET Last Admin: 09/27/20 07:06 Dose: 999 mls/hr Documented by: ADY Sodium Chloride (Sodium Chloride 0.9% 10 Ml Syringe) 10 ml FLUSH ASDIRECTED PRN PRN Reason: Keep Vein Open Last Admin: 09/27/20 06:32 Dose: 10 ml Documented by: DARCY Labs: Laboratory Tests 09/27/20 09/27/20 09/27/20 Range/Units 06:47 06:47 06:47 WBC 7.29 (3.98-10.04) K/mm3 RBC 4.65 (3.98-5.22) M/mm3 Hgb 14.2 (11.2-15.7) gm/dl Hct 43.0 (34.1-44.9) % MCV 92.5 D (79.4-94.8) fl MCH 30.5 (25.6-32.2) pg MCHC 33.0 (32.2-35.5) g/dl RDW Std Deviation 48.2 H (36.4-46.3) fL Plt Count 219 (182-369) K/mm3 MPV 10.3 (9.4-12.3) fl Neut % (Auto) 56.3 (34.0-71.1) % Lymph % (Auto) 28.7 (19.3-51.7) % [place] % (Auto) 10.3 (4.7-12.5) % Eos % (Auto) 4.1 (0.7-5.8) Baso % (Auto) 0.5 (0.1-1.2) % Neut # (Auto) 4.10 (1.56-6.13) K/mm3 Lymph # (Auto) 2.09 (1.18-3.74) K/mm3 [place] # (Auto) 0.75 H (0.24-0.36) K/mm3 Eos # (Auto) 0.30 (0.04-0.36) K/mm3 Baso # (Auto) 0.04 (0.01-0.08) K/mm3 Sodium 145 (136-145) mEq/L Potassium 3.7 (3.5-5.1) mEq/L Chloride 108 H (98-107) mEq/L Carbon Dioxide 29 (21-32) mEq/L Anion Gap 11.7 (5-15) BUN 17 (7-18) mg/dL Creatinine 0.9 (0.55-1.02) mg/dL Est Cr Clr Drug Dosing TNP Estimated GFR (MDRD) > 60 (>60) mL/min BUN/Creatinine Ratio 18.9 H (14-18) Glucose 105 H (70-99) mg/dL Calcium 8.8 (8.5-10.1) mg/dL Magnesium 1.9 (1.8-2.4) mg/dL Total Bilirubin 0.4 (0.2-1.0) mg/dL AST 20 (15-37) U/L ALT 35 (14-59) U/L Alkaline Phosphatase 75 (46-116) U/L Total Protein 6.8 (6.4-8.2) g/dl Albumin 3.4 (3.4-5.0) g/dl Globulin 3.4 gm/dL Albumin/Globulin Ratio 1.0 (1-2) Meds: Medications Generic Name Dose Route Start Last Admin Trade Name Freq PRN Reason Stop Dose Admin Sodium Chloride 1,000 mls @ 999 mls/hr 09/27/20 07:00 09/27/20 07:06 Normal Saline IV 999 mls/hr ONETIME BRET Administration Sodium Chloride 10 ml 09/27/20 06:30 09/27/20 06:32 Sodium Chloride 0.9% 10 Ml Syringe FLUSH 10 ml ASDIRECTED PRN Administration Keep Vein Open Discontinued Medications Generic Name Dose Route Start Last Admin Trade Name Javy PRN Reason Stop Dose Admin Ibutilide Fumarate 1 mg/ 60 mls @ 300 mls/hr 09/27/20 07:24 09/27/20 07:43 Sodium Chloride IV 09/27/20 07:35 300 mls/hr ONETIME ONE Administration Ibutilide Fumarate 1 mg/ 60 mls @ 300 mls/hr 09/27/20 08:19 09/27/20 08:42 Sodium Chloride IV 09/27/20 08:30 300 mls/hr ONETIME ONE Administration Metoprolol Tartrate 5 mg 09/27/20 06:31 09/27/20 06:35 Metoprolol Tartrate 5 Mg/5 Ml Sdv IVPUSH 09/27/20 06:32 5 mg ONETIME ONE Administration - Re-Assessments/Exams Free Text/Narrative Re-Assessment/Exam: 09/27/20 07:10: Care has been assumed from Dr. Thurman at change of shift. Patient presents to the ED with recurrent or paroxysmal atrial fibrillation which awoke her from sleep this morning. She is chronically anticoagulated with Xarelto 20 mg daily. She is on metoprolol succinate 25 mg once daily in the morning. Initial dose of Lopressor 5 mg dropped her blood pressure to 84 systolic. We will wait for her to recover and then a plan on trying Corvert 1 mg IV infused over 15 minutes. 09/27/20 07:45: Corvert will be started now. Blood pressure is recovered to 104/74. Portable chest x-ray is within normal limits. Cardiac silhouette and mediastinum are normal. No infiltrates in the lungs. 09/27/20 08:23 First dorsal Corvert has been infused for about 25 minutes heart rate did slow down transiently to as low as 52/min. Remains around 93 to 1 04/min. Blood pressure is 91/67. Will infuse second dose of Corvert 1 mg IV now. Failing this we will look at digoxin intravenously. 09/27/20 08:51 patient has converted to sinus rhythm at 50/min. BP is 94/66. She just completed the second dose of Corvert 1 mg IV. She will be monitored in the ED for now. 09/27/20 09:48 Patient has remained in sinus rhythm at 58/min. She feels fine will be discharged to home. I make sure that her current dose of metoprolol is indeed metoprolol succinate 25 mg daily. Is unlikely that her blood pressure would tolerate a increased dose of metoprolol. She would probably tolerate low- dose digoxin 0.0625 mg daily if she continues to have paroxysmal A. fib. Departure - Departure Time of Disposition: 09:23 Reason for Transfer *Q: Other Condition: Fair Sepsis Event Note (ED) - Focused Exam Vital Signs: Vital Signs Temp Pulse Pulse Resp BP BP Pulse Ox 09/27/20 09:07 53 L 18 95/72 98 09/27/20 08:43 98 16 79/61 L 99 09/27/20 06:35 131 H 110/70 09/27/20 06:13 35.8 C L 145 H 17 134/123 H 94 L
[2020-09-27] MEDS ORDERED: Sodium Chloride 0.9% 1,000 ML IV SCH (07:00)
--- NOTE | 2020-09-27 07:39 | CR ---
Chest: Portable view of the chest was obtained. Comparison: Prior chest x-ray of 05/10/20. Heart size and mediastinum are within normal limits for portable technique. Lungs are clear with no acute parenchymal change. Bony structures show nothing acute. Impression: 1. Nothing acute is seen on portable chest x-ray. Diagnostic code #1
[2020-09-27 09:07] VITALS: BP 95/72; PULSE 53
== END 2020-09-27 09:33 | disposition home or self-care (01) ==
LOC: JD.ED 06:07
DX: I48.0 Paroxysmal atrial fibrillation (principal); K21.9 Gastro-esophageal reflux disease without esophagitis; E03.9 Hypothyroidism, unspecified; Z79.899 Other long term (current) drug therapy; Z91.013 Allergy to seafood; Z88.8 Allergy status to other drugs, medicaments and biological substances
CPT/HCPCS: 36415; 71045; 80053; 83735; 85025; 93005; 96365; 96366; 96375; 99285; J1742; J3490; J7030; 93010; 99283

== ENCOUNTER 2022-03-10 10:59 | Emergency (ER) | payer MEDICARE, OTHER ==
[2022-03-10 11:17] VITALS: BP 109/73; PULSE 66
== END 2022-03-10 13:05 | disposition home or self-care (01) ==
LOC: JD.ED 10:59
DX: S92.511A Displaced fracture of proximal phalanx of right lesser toe(s), initial encounter for closed fracture (principal); I48.91 Unspecified atrial fibrillation; K21.9 Gastro-esophageal reflux disease without esophagitis; E03.9 Hypothyroidism, unspecified; Z91.013 Allergy to seafood; Z88.8 Allergy status to other drugs, medicaments and biological substances; Z79.01 Long term (current) use of anticoagulants; Z79.899 Other long term (current) drug therapy; W22.09XA Striking against other stationary object, initial encounter
CPT/HCPCS: 73660-26-T9; 73660-T9; 99283

== ENCOUNTER 2022-06-30 07:25 | Emergency (ER) | payer MEDICARE, OTHER ==
[2022-06-30 07:33] VITALS: BP 154/92; PULSE 64
[2022-06-30] MEDS ORDERED: Sodium Chloride 0.9% 10 ML Syringe FLUSH PRN (07:43)
[2022-06-30] MEDS ORDERED: cefTRIAXone 2 GM in Sodium Chloride 0.9% 100 ML IV ONE (07:43)
[2022-06-30] MEDS ORDERED: Codeine/Promethazine 10-6.25 MG/5 ML Syrup 5 ML UD Cup PO ONE (07:44)
[2022-06-30 08:29] LABS: CORONAVIRUS COVID-19 NAA NEGATIVE (NEGATIVE); INFLUENZA A NAA NEGATIVE (NEGATIVE); RESPIRATORY SYNCYTIAL VIR NAA NEGATIVE (NEGATIVE)
[2022-06-30 09:03] LABS: HEMATOCRIT 46.3 % (34.1-44.9); HEMOGLOBIN 15.6 gm/dl (11.2-15.7); MEAN CORPUSCULAR HEMOGLOBIN 30.9 pg (25.6-32.2); MEAN CORPUSCULAR HGB CONC 33.7 g/dl (32.2-35.5); MEAN CORPUSCULAR VOLUME 91.7 fl (79.4-94.8); MEAN PLATELET VOLUME 10.2 fl (9.4-12.3); PLATELET COUNT,PLT 182 K/mm3 (182-369); RED BLOOD CELL COUNT 5.05 M/mm3 (3.98-5.22); WHITE BLOOD CELL COUNT,WBC 5.46 K/mm3 (3.98-10.04)
[2022-06-30 09:08] LABS: INR 1.02; PROTHROMBIN TIME 10.9 SECONDS (9.7-12.0)
[2022-06-30 09:12] LABS: A/G RATIO 0.9 (1-2); ALANINE AMINOTRANSFERASE,ALT 55 U/L (14-59); ALBUMIN 3.5 g/dl (3.4-5.0); ALKALINE PHOSPHATASE 79 U/L (46-116); ANION GAP 11.5 (5-15); ASPARTATE AMNIOTRANSFERASE,AST 38 U/L (15-37); BILIRUBIN TOTAL 0.5 mg/dL (0.2-1.0); BLOOD UREA NITROGEN,BUN 18 mg/dL (7-18); BUN/CREATININE RATIO 16.4 (14-18); C-REACTIVE PROTEIN <0.2 mg/dL (<1.0); CALCIUM 9.3 mg/dL (8.5-10.1); CARBON DIOXIDE,CO2 26 mEq/L (21-32); CHLORIDE,CL 103 mEq/L (98-107); CREATININE 1.1 mg/dL (0.55-1.02); EST CRCL DRUG DOSING (CG) 41.68 mL/min; ESTIMATED GFR 54 mL/min (>60); GLUCOSE RANDOM 95 mg/dL (70-99); POTASSIUM,K 3.5 mEq/L (3.5-5.1); PROTEIN TOTAL,TP 7.4 g/dl (6.4-8.2); SODIUM,NA 137 mEq/L (136-145)
[2022-06-30 09:15] LABS: LACTIC ACID 0.9 mmol/L (0.4-2.0)
[2022-06-30 10:01] LABS: BAND PERCENT MAN 4 % (0-10); BASOPHILS PERCENT MAN 2 (0.1-1.2); EOSINOPHILS PERCENT MAN 1 % (0.7-5.8); LYMPHOCYTES % ATYPICAL MANUAL 0 %; LYMPHOCYTES PERCENT MAN 16 % (20-40); MONOCYTES PERCENT MAN 6 % (2-10); PLATELET COUNT ESTIMATE ADEQUATE
[2022-06-30] MEDS ORDERED: methylPREDNISolone Sodium Succinate 125 MG/2 ML SDV IVPUSH ONE (10:19)
== END 2022-06-30 11:11 | disposition home or self-care (01) ==
LOC: JD.ED 07:25
DX: J18.9 Pneumonia, unspecified organism (principal); J45.21 Mild intermittent asthma with (acute) exacerbation; I48.91 Unspecified atrial fibrillation; K21.9 Gastro-esophageal reflux disease without esophagitis; E03.9 Hypothyroidism, unspecified; Z88.8 Allergy status to other drugs, medicaments and biological substances; Z91.013 Allergy to seafood; Z79.01 Long term (current) use of anticoagulants; Z79.899 Other long term (current) drug therapy; Z20.822 Contact with and (suspected) exposure to COVID-19
CPT/HCPCS: 0241U; 36415; 71046; 80053; 83605; 85007; 85027; 85610; 86140; 86738; 87040; 96365; 96375; 99285; A9270; J0696; J2930; J3490; 99284